=== PATIENT | male | born 1985 | race Caucasian/White ===

== ENCOUNTER 2020-03-14 18:23 | Observation (INO) | payer OTHER ==
[2020-03-14] MEDS ORDERED: LORazepam 2 MG/ML INJ IV STA (18:51)
[2020-03-14 19:11] LABS: Basophils % (A) 1 %; Eosinophils # (A) 0.1 k/uL (0-0.7); Eosinophils % (A) 4 %; HCT 46.6 % (39.0-53.0); HGB 16.1 gm/dL (13.0-17.5); Lymphocytes # (A) 2.1 k/uL (1.0-4.8); Lymphocytes % (A) 62 %; MCH 32.9 pg (25.0-35.0); MCHC 34.6 g/dL (31.0-37.0); MCV 95.2 fL (80.0-100.0); Mean Platelet Volume 7.2; Monocytes # (A) 0.1 k/uL (0-1.0); Monocytes % (A) 3 %; Neutrophils # (A) 0.9 k/uL (1.3-7.7); Neutrophils % (A) 28 %; Platelet Count 157 k/uL (150-450); RDW 13.2 % (11.5-15.5); WBC 3.4 k/uL (3.8-10.6)
[2020-03-14 19:19] LABS: ALT 212 U/L (4-49); AST 140 U/L (17-59); African American GFR (CKD) >90 (>60 ml/min/1.73 sqM); Albumin 5.2 g/dL (3.5-5.0); Alkaline Phosphatase 94 U/L (38-126); Anion Gap 17 mmol/L; Blood Urea Nitrogen 5 mg/dL (9-20); Calcium 9.3 mg/dL (8.4-10.2); Carbon Dioxide 22 mmol/L (22-30); Chloride 106 mmol/L (98-107); Glucose 138 mg/dL (74-99); Non-African American GFR(CKD) >90 (>60 ml/min/1.73 sqM); Potassium 4.2 mmol/L (3.5-5.1); Sodium 145 mmol/L (137-145); Total Bilirubin 0.8 mg/dL (0.2-1.3); Total Protein 8.8 g/dL (6.3-8.2)
[2020-03-14 19:22] LABS: Appearance,Urine Clear (Clear); Bilirubin,Urine Negative (Negative); Blood,Urine Trace (Negative); Color,Urine Yellow; Glucose,Urine (UA) Negative (Negative); Hyaline Casts,Urine 63 /lpf (0-2); Ketones,Urine Trace (Negative); Leukocyte Esterase,Urine Negative (Negative); Mucus,Urine Many /hpf; Nitrite,Urine Negative (Negative); Protein,Urine 2+ (Negative); RBC,Urine 1 /hpf (0-5); Specific Gravity,Urine 1.009 (1.001-1.035); Urobilinogen,Urine <2.0 mg/dL (<2.0); WBC,Urine 2 /hpf (0-5)
[2020-03-14 19:30] LABS: Amphetamine Screen,Urine Not Detected (NotDetected); Barbiturate Screen,Urine Not Detected (NotDetected); Benzodiazepines Screen,Urine Not Detected (NotDetected); Cocaine Screen,Urine Not Detected (NotDetected); Methadone Screen, Urine Not Detected (NotDetected); Opiate Screen,Urine Not Detected (NotDetected); Oxycodone Screen, Urine Not Detected (NotDetected); Phencyclidine Screen,Urine Not Detected (NotDetected); Tricyclic Antidepressant,Urine Not Detected (NotDetected); Urn Cannabinoid Scrn Not Detected (NotDetected)
[2020-03-14 19:31] LABS: Alcohol 371 mg/dL
--- NOTE | 2020-03-14 19:42 | ED ---
Psych HPI - General Chief Complaint: Psychiatric Symptoms Stated Complaint: Mental health Time Seen by Provider: 03/14/20 18:30 Source: patient Mode of arrival: ambulatory - History of Present Illness Initial Comments: Patient is a 34-year-old previously healthy male presents to the emergency room with reported depression and suicidal ideations. Patient arrives with his mother at bedside. Patient reports to feeling depressed for the past several years however his depression has gotten worse over the past month. He states he feels "empty" inside. Denies any suicidal plan and has not attempted to harm himself. Reports to hearing of voices in his head repeating his name over and over. Due to his depression the patient has been drinking daily. States that he drank a pint today. Denies any other drug use. Patient has never been evaluated by social work. No inpatient hospitalizations for mental health. Denies any homicidal ideations. No visual hallucinations. No other alleviating, precipitating or modifying factors - Related Data Home Medications Medication Instructions Recorded Confirmed No Known Home Medications 03/14/20 03/14/20 Allergies Allergy/AdvReac Type Severity Reaction Status Date / Time No Known Allergies Allergy Verified 03/14/20 20:05 Review of Systems ROS Statement: Those systems with pertinent positive or pertinent negative responses have been documented in the HPI. ROS Other: All systems not noted in ROS Statement are negative. Past Medical History Past Medical History: No Reported History History of Any Multi-Drug Resistant Organisms: MRSA Past Surgical History: No Surgical Hx Reported Past Psychological History: No Psychological Hx Reported Smoking Status: Never smoker Past Alcohol Use History: Daily, Heavy Past Drug Use History: None Reported General Exam Limitations: no limitations General appearance: alert, in no apparent distress, anxious Head exam: Present: atraumatic, normocephalic, normal inspection Eye exam: Present: normal appearance, PERRL, EOMI. Absent: scleral icterus, conjunctival injection, periorbital swelling ENT exam: Present: normal exam, mucous membranes moist Neck exam: Present: normal inspection. Absent: tenderness, meningismus, lymphadenopathy Respiratory exam: Present: normal lung sounds bilaterally. Absent: respiratory distress, wheezes, rales, rhonchi, stridor Cardiovascular Exam: Present: normal rhythm, tachycardia, normal heart sounds. Absent: systolic murmur, diastolic murmur, rubs, gallop, clicks GI/Abdominal exam: Present: soft, normal bowel sounds. Absent: distended, tenderness, guarding, rebound, rigid Extremities exam: Present: normal inspection, full ROM, normal capillary refill. Absent: tenderness, pedal edema, joint swelling, calf tenderness Back exam: Present: normal inspection Neurological exam: Present: alert, oriented X3, CN II-XII intact Psychiatric exam: Present: depressed, anxious Skin exam: Present: warm, dry, intact, normal color. Absent: rash Course Vital Signs 03/14/20 03/14/20 03/14/20 18:28 19:19 20:46 Temperature 97.7 F Pulse Rate 142 H 101 H 110 H Respiratory 18 18 Rate Blood Pressure 158/117 148/108 150/102 O2 Sat by Pulse 100 97 Oximetry Medical Decision Making - Medical Decision Making Upon arrival patient is placed into room 13. A thorough history and physical exam is performed. Patient is tachycardic. Peripheral IV was established. Laboratory studies were conducted. Patient's blood alcohol level is 371. AST and ALTs are elevated. As the patient is significantly intoxicated did recommend hospital admission for which the patient did agree to. I discussed the case with Dr. lock. He did request that the patient be placed on Valium 5 mg every 8 hours and Lopressor 12.5 mg every 8 hrs. These medications were ordered. Psychiatry will be consult. Patient remained in stable condition awaiting a bed on the floor - Lab Data Result diagrams: 03/15/20 07:42 03/15/20 07:42 Lab Results 03/14/20 03/14/20 03/14/20 Range/Units 18:55 18:55 19:12 WBC 3.4 L (3.8-10.6) k/uL RBC 4.90 (4.30-5.90) m/uL Hgb 16.1 (13.0-17.5) gm/dL Hct 46.6 (39.0-53.0) % MCV 95.2 (80.0-100.0) fL MCH 32.9 (25.0-35.0) pg MCHC 34.6 (31.0-37.0) g/dL RDW 13.2 (11.5-15.5) % Plt Count 157 (150-450) k/uL Neutrophils % 28 % Lymphocytes % 62 % Monocytes % 3 % Eosinophils % 4 % Basophils % 1 % Neutrophils # 0.9 L (1.3-7.7) k/uL Lymphocytes # 2.1 (1.0-4.8) k/uL Monocytes # 0.1 (0-1.0) k/uL Eosinophils # 0.1 (0-0.7) k/uL Basophils # 0.0 (0-0.2) k/uL Manual Slide Review Performed Sodium 145 (137-145) mmol/L Potassium 4.2 (3.5-5.1) mmol/L Chloride 106 (98-107) mmol/L Carbon Dioxide 22 (22-30) mmol/L Anion Gap 17 mmol/L BUN 5 L (9-20) mg/dL Creatinine 1.02 (0.66-1.25) mg/dL Est GFR (CKD-EPI)AfAm >90 (>60 ml/min/1.73 sqM) Est GFR (CKD-EPI)NonAf >90 (>60 ml/min/1.73 sqM) Glucose 138 H (74-99) mg/dL Calcium 9.3 (8.4-10.2) mg/dL Total Bilirubin 0.8 (0.2-1.3) mg/dL AST 140 H (17-59) U/L ALT 212 H (4-49) U/L Alkaline Phosphatase 94 (38-126) U/L Total Protein 8.8 H (6.3-8.2) g/dL Albumin 5.2 H (3.5-5.0) g/dL Urine Color Yellow Urine Appearance Clear (Clear) Urine pH 6.0 (5.0-8.0) Ur Specific [place] 1.009 (1.001-1.035) Urine Protein 2+ H (Negative) Urine Glucose (UA) Negative (Negative) Urine Ketones Trace H (Negative) Urine Blood Trace H (Negative) Urine Nitrite Negative (Negative) Urine Bilirubin Negative (Negative) Urine Urobilinogen <2.0 (<2.0) mg/dL Ur Leukocyte Esterase Negative (Negative) Urine RBC 1 (0-5) /hpf Urine WBC 2 (0-5) /hpf Hyaline Casts 63 H (0-2) /lpf Urine Mucus Many H (None) /hpf Urine Opiates Screen Not Detected (NotDetected) Ur Oxycodone Screen Not Detected (NotDetected) Urine Methadone Screen Not Detected (NotDetected) Ur Propoxyphene Screen Not Detected (NotDetected) Ur Barbiturates Screen Not Detected (NotDetected) U Tricyclic Antidepress Not Detected (NotDetected) Ur Phencyclidine Scrn Not Detected (NotDetected) Ur Amphetamines Screen Not Detected (NotDetected) U Methamphetamines Scrn Not Detected (NotDetected) U Benzodiazepines Scrn Not Detected (NotDetected) Urine Cocaine Screen Not Detected (NotDetected) U Marijuana (THC) Screen Not Detected (NotDetected) Serum Alcohol 371 H* mg/dL Disposition Clinical Impression: Depression, Suicidal ideation, Alcohol intoxication Disposition: ADMITTED IP TO THIS [facility] Condition: Stable Is patient prescribed a controlled substance at d/c from ED?: No Decision to Admit Reason: Admit from EC Decision Date: 03/14/20 Decision Time: 19:44
[2020-03-14] MEDS ORDERED: NALOXONE 0.4 MG/ML 1 ML VIAL IV PRN (19:44)
[2020-03-14] MEDS ORDERED: LORazepam 2 MG/ML INJ IV PRN ×2 (19:46)
[2020-03-14] MEDS ORDERED: THIAMINE 100 MG/ML 2 ML VIAL IM STA (19:46)
[2020-03-14] MEDS: SODIUM CHLORIDE 0.9% 1,000 ML IV SCH ×2 (20:41→22:12)
[2020-03-14] MEDS: diazePAM 5 MG TAB PO SCH (22:09)
[2020-03-14] MEDS: METOPROLOL TARTRATE 12.5 MG TAB PO SCH (22:09)
[2020-03-15] MEDS: LORazepam 2 MG/ML INJ IV PRN ×3 (05:37→20:30)
[2020-03-15 08:14] LABS: Basophils % (A) 1 %; Eosinophils # (A) 0.1 k/uL (0-0.7); Eosinophils % (A) 3 %; HCT 43.7 % (39.0-53.0); HGB 15.1 gm/dL (13.0-17.5); Lymphocytes # (A) 1.6 k/uL (1.0-4.8); Lymphocytes % (A) 52 %; MCH 33.3 pg (25.0-35.0); MCHC 34.5 g/dL (31.0-37.0); MCV 96.5 fL (80.0-100.0); Mean Platelet Volume 7.3; Monocytes # (A) 0.2 k/uL (0-1.0); Monocytes % (A) 6 %; Neutrophils % (A) 35 %; Platelet Count 148 k/uL (150-450); RBC 4.53 m/uL (4.30-5.90); RDW 13.3 % (11.5-15.5)
[2020-03-15 08:18] LABS: African American GFR (CKD) >90 (>60 ml/min/1.73 sqM); Anion Gap 9 mmol/L; Blood Urea Nitrogen 6 mg/dL (9-20); Calcium 8.5 mg/dL (8.4-10.2); Carbon Dioxide 26 mmol/L (22-30); Chloride 106 mmol/L (98-107); Glucose 96 mg/dL (74-99); Non-African American GFR(CKD) >90 (>60 ml/min/1.73 sqM); Potassium 4.1 mmol/L (3.5-5.1); Sodium 141 mmol/L (137-145)
[2020-03-15] MEDS: METOPROLOL TARTRATE 12.5 MG TAB PO SCH ×3 (08:38→20:29)
[2020-03-15] MEDS: diazePAM 5 MG TAB PO SCH ×3 (08:39→20:29)
[2020-03-15] MEDS: THIAMINE 100 MG TAB PO SCH ×2 (08:39→17:08)
[2020-03-15] MEDS: SODIUM CHLORIDE 0.9% 1,000 ML IV SCH ×2 (08:41→17:09)
[2020-03-15] MEDS: FAMOTIDINE 20 MG TAB PO SCH ×2 (12:41→20:29)
--- NOTE | 2020-03-15 16:52 | CONS ---
CONSULTATION REASON FOR CONSULTATION: Alcohol intoxication and depression. HISTORY OF PRESENT ILLNESS: Patient is a 34-year-old male, father of 2 children. Currently unemployed. The patient presented to the emergency room with depression and suicidal ideation. At the time of his arrival, the patient's serum alcohol was 371. 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 Patient stated that he has been drinking on daily basis at least 1 pint a day. He said "it is my way to calm down my head. I am always dwelling on negative stuff." At the time, the patient was teary eyes and he stated that when he was drinking yesterday he was hearing voices in his head, calling his name over and over and also he saw that there is people are trying to break in to the house and he did contact his mother, who took him to the ER. The patient stated that his main support is his mother. Today, he denied any auditory or visual hallucination. He denied any paranoia, but he stated that he has severe anxiety and agoraphobia and fears to be around people. The patient stated that he used when he was young to hear voices calling his name, but not anymore. PAST PSYCHIATRIC HISTORY: There is no previous suicidal attempt. There is no previous inpatient treatment. However, he was in outpatient counseling 2 years ago with private psychiatrist, but he did not follow up with him, even he did prescribe antidepression, but patient did not take it. ALCOHOL USE DISORDER: For the last 5 years, he has been drinking more often on daily basis 1 pint a day. He denied any history of DT or withdrawal seizures. He never had been in rehab program. He denied any other illicit drug use. FAMILY HISTORY OF PSYCHIATRIC ILLNESS: Both parents and 2 brothers struggling with alcohol. Also, father did have depression and attempted suicide once. BRIEF SOCIAL HISTORY: The patient was for 5 years and he has 2 young children. Currently, he is and going through a divorce. As I mentioned before, he just was laid off from his job. His main support is his mother. MEDICAL HISTORY: There is history of MRSA. ALLERGIES: There is no drug allergy. MENTAL STATUS EXAMINATION: Patient is young male who is wearing hospital gown. Hygiene and grooming appropriate. He is wearing eyeglasses. Patient was trying to minimize his depression. However, when he was talking about ongoing stressor, he did have teary eyes. Today he denied any current suicidal or homicidal ideation and he denied hearing any voices, but he did admit that he has severe agoraphobia and having difficulty trusting people. Even he said that he is struggling with a lot of negative elimination and that is why "maybe that is why I have been drinking more over the last couple of years, just to slow down my brain." The patient was alert, oriented x3. His memory is grossly intact. Insight and judgment are limited. DIAGNOSES: 1. Alcohol use disorder, severe. 2. Major depression, recurrent, moderate. 3. Anxiety disorder, NOS. PLAN: 1. Please continue one-to-one for safety. 2. Continue the patient on the CIWA protocol. I did discuss with him inpatient substance rehab, but he stated that he wants to think about it. However, I will continue to follow up as long as he is on the medical floor as the patient seems that he has a lot of losses recently and depressed, but he trying to minimize the level of his depression. Thank you for this consult. JACKLYN / ADRIEN: [id number] /
--- NOTE | 2020-03-15 19:48 | P.HPIM ---
History of Present Illness H&P Date: 03/15/20 Chief Complaint: Depressed History of presenting complaint: This is a 34-year-old patient of Dr. Chavez. Patient takes she's been depressed for some time. He is undergoing a divorce. He has been laid off for few weeks due to the pandemic. Patient has been drinking lots 10 years a pint of vodka a day. More recently has become more depressed rundown. Pretty much lays about on the couch. Appetite is gone none. Some does get reflux. Does not sleep well. Some diet only sleep for 2 hours. Alcohol left some go to sleep. He felt really suicidal depressed yesterday. Called his mother. Who brought into the ER. Patient admitted for the same. Put on a CIWA scale. Review of systems: GEN.: Tired EYES: None HEENT: None NECK: None RESPIRATORY: None CARDIOVASCULAR: None GASTROINTESTINAL: Reflux sometimes GENITOURINARY: None MUSCULOSKELETAL: None LYMPHATICS: None HEMATOLOGICAL: None PSYCHIATRY: Depressed NEUROLOGICAL: None Past medical history to include: Alcohol use disorder Social history: Going through divorce has 2 kids. 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 Has been drinking a pint of vodka, and average for close to 10 years Family history: Reviewed, noncontributory to presentation Physical examination: VITAL SIGNS: 97.7, 142, 18, 150 [id number], 100% on room air GENERAL: BMI 31.6, laying in bed, awake a bit anxious. A bit flushed EYES: Pupils equal. Conjunctiva normal. HEENT: External appearance of nose and ears normal, oral cavity grossly normal. NECK: JVD not raised; masses not palpable. HEART: First and second heart sounds are normal; no edema. LUNGS: Respiratory rate normal; clear to auscultation. ABDOMEN: Soft, nontender, liver spleen not palpable, no masses palpable. PSYCH: Alert and oriented x3; mood and affect anxiousl. NEUROLOGICAL: Cranial nerves grossly intact; no facial asymmetry, power and sensation grossly intact. LYMPHATICS: No lymph nodes palpable in the axilla and neck. INVESTIGATIONS, reviewed in the clinical context: White count 3.4 hemoglobin 16.1 platelets 148 decreased neutrophils potassium 4.2 creatinine 1.02 AST 140 ALT 212 Serum alcohol 371 urine drug screen negative Assessment: -Major depression possibly first episode with suicidal ideation -Chronic insomnia possibly from depression and anxiety -Alcoholic hepatitis -Alcohol use disorder -Alcohol withdrawal syndrome on presentation -Acute alcohol intoxication on presentation -Obesity BMI 31.6 Plan: Patient started on Valium 5 mg every 8 scheduled. Also Lopressor 12.5 - 3 times a day for cutting back on [address]. Patient has a sitter. On a CIWA scale. Psychiatry was consulted. In watch for another 24 hours and then transferred to patient is psychiatry unit. Past Medical History Past Medical History: No Reported History History of Any Multi-Drug Resistant Organisms: MRSA Past Surgical History: No Surgical Hx Reported Past Anesthesia/Blood Transfusion Reactions: No Reported Reaction Past Psychological History: No Psychological Hx Reported Smoking Status: Never smoker Past Alcohol Use History: Daily, Heavy Past Drug Use History: None Reported Medications and Allergies Home Medications Medication Instructions Recorded Confirmed Type No Known Home Medications 03/14/20 03/14/20 History Allergies Allergy/AdvReac Type Severity Reaction Status Date / Time No Known Allergies Allergy Verified 03/14/20 20:05 Physical Exam Vitals: Vital Signs Temp Pulse Pulse Resp BP BP Pulse Ox 03/15/20 07:32 98.3 F 92 16 128/76 97 03/15/20 01:58 98.1 F 97 19 118/73 96 03/14/20 21:15 98.0 F 18 148/96 98 03/14/20 20:46 110 H 150/102 97 03/14/20 19:19 101 H 18 148/108 03/14/20 18:28 97.7 F 142 H 18 158/117 100 Intake and Output 03/14/20 03/15/20 03/15/20 22:59 06:59 14:59 Intake Total 500 1200 Balance 500 1200 Intake: Intake, IV Titration 300 900 Amount Sodium Chloride 0.9% 1, 300 900 000 ml @ 150 mls/hr IV . [id number] [facility] Rx#:[id number] Oral 200 300 Other: Voiding Method Toilet Toilet Toilet # Voids 2 2 Weight 99.79 kg Results CBC & Chem 7: 03/15/20 07:42 03/15/20 07:42 Labs: Abnormal Lab Results - Last 24 Hours (Table) 03/14/20 03/14/20 03/14/20 Range/Units 18:55 18:55 19:12 WBC 3.4 L (3.8-10.6) k/uL Plt Count (150-450) k/uL Neutrophils # 0.9 L (1.3-7.7) k/uL BUN 5 L (9-20) mg/dL Glucose 138 H (74-99) mg/dL AST 140 H (17-59) U/L ALT 212 H (4-49) U/L Total Protein 8.8 H (6.3-8.2) g/dL Albumin 5.2 H (3.5-5.0) g/dL Urine Protein 2+ H (Negative) Urine Ketones Trace H (Negative) Urine Blood Trace H (Negative) Hyaline Casts 63 H (0-2) /lpf Urine Mucus Many H (None) /hpf Serum Alcohol 371 H* mg/dL 03/15/20 03/15/20 Range/Units 07:42 07:42 WBC 3.0 L (3.8-10.6) k/uL Plt Count 148 L (150-450) k/uL Neutrophils # 1.0 L (1.3-7.7) k/uL BUN 6 L (9-20) mg/dL Glucose (74-99) mg/dL AST (17-59) U/L ALT (4-49) U/L Total Protein (6.3-8.2) g/dL Albumin (3.5-5.0) g/dL Urine Protein (Negative) Urine Ketones (Negative) Urine Blood (Negative) Hyaline Casts (0-2) /lpf Urine Mucus (None) /hpf Serum Alcohol mg/dL Thrombosis Risk Factor Assmnt - Choose All That Apply Any of the Below Risk Factors Present?: No Other Risk Factors: No Other congenital or acquired thrombophilia - If yes, enter type in comment: No Thrombosis Risk Factor Assessment Level: Very Low Risk
[2020-03-16] MEDS: diazePAM 5 MG TAB PO SCH ×2 (04:00→11:48)
[2020-03-16] MEDS: FAMOTIDINE 20 MG TAB PO SCH (08:04)
[2020-03-16] MEDS: METOPROLOL TARTRATE 12.5 MG TAB PO SCH (08:04)
[2020-03-16] MEDS: THIAMINE 100 MG TAB PO SCH (08:04)
[2020-03-16 15:20] VITALS: BP 143/99; PULSE 98; RESP 18; TEMP 98.3
--- NOTE | 2020-03-16 20:59 | P.DS ---
Providers Date of admission: 03/14/20 19:47 Expected date of discharge: 03/16/20 Attending physician: Steve Licona Consults: 03/14/20 19:45 Consult Physician Urgent Consulting Provider: Andra Cantrell Consult Reason/Comments: acute alcohol intoxication, acute depression Do you want consulting provider notified?: Yes [facility] Course: Chief Complaint: Depressed History of presenting complaint: This is a 34-year-old patient of Dr. Chavez. Patient takes she's been depressed for some time. He is undergoing a divorce. He has been laid off for few weeks due to the pandemic. Patient has been drinking lots 10 years a pint of vodka a day. More recently has become more depressed rundown. Pretty much lays about on the couch. Appetite is gone none. Some does get reflux. Does not sleep well. Some diet only sleep for 2 hours. Alcohol left some go to sleep. He felt really suicidal depressed yesterday. Called his mother. Who brought into the ER. Patient admitted for the same. Put on a CIWA scale. Admitted with severe depression with suicidal ideation and alcohol intoxication. Treated for early withdrawal with Valium and Lopressor. Today-feeling better. Hadn't eaten her breakfast. Has a sitter. Depressed. Did walk in the hallway. We'll give another 48 hours of Valium tapering and Lopressor. Patient was seen by Dr. Blood from psychiatry. Accepted to the psychiatry floor. Discussed with the patient. Patient related to go down to the psychiatry floor. Consultation: Dr. blood from psychiatry's Physical examination: VITAL SIGNS: 98.1, 73, 16, 149/94, 99% room air GENERAL: BMI 31.6, laying in bed, awake EYES: Pupils equal. Conjunctiva normal. HEENT: External appearance of nose and ears normal, oral cavity grossly normal. NECK: JVD not raised; masses not palpable. HEART: First and second heart sounds are normal; no edema. LUNGS: Respiratory rate normal; clear to auscultation. ABDOMEN: Soft, nontender, liver spleen not palpable, no masses palpable. PSYCH: Alert and oriented x3; mood and affect anxious. INVESTIGATIONS, reviewed in the clinical context: White count 3.4 hemoglobin 16.1 platelets 148 decreased neutrophils potassium 4.2 creatinine 1.02 AST 140 ALT 212 Serum alcohol 371 urine drug screen negative Assessment: -Major depression recurrent, moderate -Chronic insomnia possibly from depression and anxiety -Alcoholic hepatitis -Alcohol use disorder -Alcohol withdrawal syndrome on presentation -Acute alcohol intoxication on presentation -Obesity BMI 31.6 Disposition: 3 W./psychiatry unit at [facility] Patient Condition at Discharge: Stable Plan - Discharge Summary Discharge Rx Participant: No New Discharge Prescriptions: New Metoprolol Tartrate [Lopressor] 12.5 mg PO BID #6 tab Famotidine [Pepcid] 20 mg PO BID tab diazePAM [Valium] 2.5 mg PO BID #4 tab Thiamine [Vitamin B-1] 100 mg PO BID-W/MEALS tab Discharge Medication List Famotidine [Pepcid] 20 mg PO BID tab 03/16/20 [Rx] Metoprolol Tartrate [Lopressor] 12.5 mg PO BID #6 tab 03/16/20 [Rx] Thiamine [Vitamin B-1] 100 mg PO BID-W/MEALS tab 03/16/20 [Rx] diazePAM [Valium] 2.5 mg PO BID #4 tab 03/16/20 [Rx] Follow up Appointment(s)/Referral(s): Twin Chavez MD [Primary Care Provider] - 2 Weeks Patient Instructions/Handouts: Abuse of Alcohol (DC), Suicide Prevention (DC) Discharge Disposition: TRANSFER TO PSYCH HOSP/UNIT
== END 2020-03-16 14:40 ==
LOC: EC 18:23 → 4SSUR 19:47
PROVIDERS: ADMIT Hospitalist; ATTEND Hospitalist
DX: F33.9 Major depressive disorder, recurrent, unspecified (principal); F10.239 Alcohol dependence with withdrawal, unspecified; F10.229 Alcohol dependence with intoxication, unspecified; F41.9 Anxiety disorder, unspecified; F51.04 Psychophysiologic insomnia; K70.10 Alcoholic hepatitis without ascites; E66.9 Obesity, unspecified; R44.0 Auditory hallucinations; R44.1 Visual hallucinations; R00.0 Tachycardia, unspecified; K21.9 Gastro-esophageal reflux disease without esophagitis; G47.9 Sleep disorder, unspecified; F40.00 Agoraphobia, unspecified; Y90.8 Blood alcohol level of 240 mg/100 ml or more; Z68.31 Body mass index [BMI] 31.0-31.9, adult; Z86.14 Personal history of Methicillin resistant Staphylococcus aureus infection; Z97.3 Presence of spectacles and contact lenses; Z81.1 Family history of alcohol abuse and dependence; Z81.8 Family history of other mental and behavioral disorders
CPT/HCPCS: 96376 ×2; 96361; 82075; 96372; 96374; 99284; 36415; 80053; 80048; 85025 ×2; 81001; 80306; 80320; G0378 ×3; J2060 ×2; J3411

== ENCOUNTER 2020-03-16 15:34 | Inpatient (IN) | payer OTHER ==
[2020-03-16] MEDS ORDERED: MAG HYDROX/AL HYDROX/SIMETH 30 ML CUP PO PRN (15:59)
[2020-03-16] MEDS ORDERED: MAGNESIUM HYDROXIDE 2,400 MG/10 ML CUP PO PRN (15:59)
[2020-03-16] MEDS ORDERED: LORazepam 1 MG TAB PO PRN (15:59)
[2020-03-16] MEDS ORDERED: ZIPRASIDONE 20 MG VIAL IM PRN (15:59)
[2020-03-16] MEDS ORDERED: LORazepam 2 MG/ML INJ IM PRN (16:03)
[2020-03-16] MEDS: THIAMINE 100 MG TAB PO SCH (17:34)
[2020-03-16] MEDS: METOPROLOL TARTRATE 12.5 MG TAB PO SCH (21:24)
[2020-03-17 07:20] LABS: Basophils # (A) 0.1 k/uL (0-0.2); Basophils % (A) 1 %; Eosinophils # (A) 0.1 k/uL (0-0.7); Eosinophils % (A) 4 %; HCT 46.7 % (39.0-53.0); HGB 15.8 gm/dL (13.0-17.5); Lymphocytes # (A) 1.7 k/uL (1.0-4.8); Lymphocytes % (A) 50 %; MCH 32.6 pg (25.0-35.0); MCHC 33.8 g/dL (31.0-37.0); MCV 96.5 fL (80.0-100.0); Mean Platelet Volume 7.8; Monocytes # (A) 0.2 k/uL (0-1.0); Monocytes % (A) 5 %; Neutrophils # (A) 1.3 k/uL (1.3-7.7); Neutrophils % (A) 38 %; Platelet Count 157 k/uL (150-450); RBC 4.84 m/uL (4.30-5.90); RDW 13.1 % (11.5-15.5); WBC 3.4 k/uL (3.8-10.6)
[2020-03-17 07:32] LABS: ALT 135 U/L (4-49); AST 75 U/L (17-59); African American GFR (CKD) >90 (>60 ml/min/1.73 sqM); Albumin 4.5 g/dL (3.5-5.0); Alkaline Phosphatase 55 U/L (38-126); Anion Gap 8 mmol/L; Blood Urea Nitrogen 11 mg/dL (9-20); Calcium 9.6 mg/dL (8.4-10.2); Carbon Dioxide 29 mmol/L (22-30); Chloride 103 mmol/L (98-107); Cholesterol 295 mg/dL (<200); Glucose 113 mg/dL (74-99); HDL Cholesterol 80 mg/dL (40-60); LDL Cholesterol,Calculated 178 mg/dL (0-99); Non-African American GFR(CKD) >90 (>60 ml/min/1.73 sqM); Potassium 4.4 mmol/L (3.5-5.1); Sodium 140 mmol/L (137-145); Total Bilirubin 1.1 mg/dL (0.2-1.3); Total Protein 7.6 g/dL (6.3-8.2); Triglycerides 186 mg/dL (<150)
[2020-03-17] MEDS: METOPROLOL TARTRATE 12.5 MG TAB PO SCH ×2 (08:43→19:56)
[2020-03-17] MEDS: FOLIC ACID 1 MG TAB PO SCH (08:43)
[2020-03-17] MEDS: ACETAMINOPHEN TAB 325 MG TAB PO PRN ×2 (08:43→18:18)
[2020-03-17] MEDS: THIAMINE 100 MG TAB PO SCH ×2 (08:43→18:16)
[2020-03-17] MEDS: NICOTINE 14MG/24HR PATCH TRANSDERM SCH (08:43)
[2020-03-17] MEDS ORDERED: HALOPERIDOL LACTATE 5 MG/ML 1 ML VIAL IM PRN (11:26)
[2020-03-17 11:38] LABS: Hemoglobin A1C 5.2 % (4.0-6.0)
--- NOTE | 2020-03-17 11:56 | P.HP ---
Psychiatric H&P - . H&P Date: 03/17/20 History & Physical: Allergies Allergy/AdvReac Type Severity Reaction Status Date / Time No Known Allergies Allergy Verified 03/14/20 20:05 Vital Signs Temp 97.9 F 03/17/20 06:54 Pulse 106 H 03/17/20 08:41 Resp 16 03/17/20 06:54 BP 129/93 03/17/20 08:41 Pulse Ox 99 03/17/20 06:54 Intake & Output 03/16/20 03/17/20 03/17/20 18:59 06:59 18:59 Weight 93.071 kg 93.2 kg Laboratory Last Values WBC 3.4 k/uL (3.8-10.6) L 03/17/20 06:53 RBC 4.84 m/uL (4.30-5.90) 03/17/20 06:53 Hgb 15.8 gm/dL (13.0-17.5) 03/17/20 06:53 Hct 46.7 % (39.0-53.0) 03/17/20 06:53 MCV 96.5 fL (80.0-100.0) 03/17/20 06:53 MCH 32.6 pg (25.0-35.0) 03/17/20 06:53 MCHC 33.8 g/dL (31.0-37.0) 03/17/20 06:53 RDW 13.1 % (11.5-15.5) 03/17/20 06:53 Plt Count 157 k/uL (150-450) 03/17/20 06:53 Neutrophils % 38 % 03/17/20 06:53 Lymphocytes % 50 % 03/17/20 06:53 Monocytes % 5 % 03/17/20 06:53 Eosinophils % 4 % 03/17/20 06:53 Basophils % 1 % 03/17/20 06:53 Neutrophils # 1.3 k/uL (1.3-7.7) 03/17/20 06:53 Lymphocytes # 1.7 k/uL (1.0-4.8) 03/17/20 06:53 Monocytes # 0.2 k/uL (0-1.0) 03/17/20 06:53 Eosinophils # 0.1 k/uL (0-0.7) 03/17/20 06:53 Basophils # 0.1 k/uL (0-0.2) 03/17/20 06:53 Sodium 140 mmol/L (137-145) 03/17/20 06:53 Potassium 4.4 mmol/L (3.5-5.1) 03/17/20 06:53 Chloride 103 mmol/L (98-107) 03/17/20 06:53 Carbon Dioxide 29 mmol/L (22-30) 03/17/20 06:53 Anion Gap 8 mmol/L 03/17/20 06:53 BUN 11 mg/dL (9-20) 03/17/20 06:53 Creatinine 0.96 mg/dL (0.66-1.25) 03/17/20 06:53 Est GFR (CKD-EPI)AfAm >90 (>60 ml/min/1.73 sqM) 03/17/20 06:53 Est GFR (CKD-EPI)NonAf >90 (>60 ml/min/1.73 sqM) 03/17/20 06:53 Glucose 113 mg/dL (74-99) H 03/17/20 06:[address] Glu mg/dL 103 03/17/20 06:53 Hemoglobin A1c 5.2 % (4.0-6.0) 03/17/20 06:53 Calcium 9.6 mg/dL (8.4-10.2) 03/17/20 06:53 Total Bilirubin 1.1 mg/dL (0.2-1.3) 03/17/20 06:53 AST 75 U/L (17-59) H 03/17/20 06:53 ALT 135 U/L (4-49) H 03/17/20 06:53 Alkaline Phosphatase 55 U/L (38-126) 03/17/20 06:53 Total Protein 7.6 g/dL (6.3-8.2) 03/17/20 06:53 Albumin 4.5 g/dL (3.5-5.0) 03/17/20 06:53 Triglycerides 186 mg/dL (<150) H 03/17/20 06:53 Cholesterol 295 mg/dL (<200) H 03/17/20 06:53 LDL Cholesterol, Calc 178 mg/dL (0-99) H 03/17/20 06:53 HDL Cholesterol 80 mg/dL (40-60) H 03/17/20 06:53 TSH 3.860 mIU/L (0.465-4.680) 03/17/20 06:53 03/17/20 11:47 IDENTIFYING DATA: Patient is a 34-year-old male who has 2 children and lives alone and is unemployed currently however was working in [employer] 2 months ago. HPI: Patient presented to the hospital initially 50 emergency room depression and suicidal thoughts. Patient's blood alcohol level was 371 on admission. Patient was seen for psychiatric consultation on the medical floors and spoke about being severely depressed and claiming that it was hard for him to wake up in the morning and be happy. 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 After being evaluated by psychiatry, patient was deemed appropriate for transfer to mental unit after he was medically cleared. Patient was seen today wandering the floors and was agreeable to be evaluated by underwriter solicitation director. Patient spoke about significant paranoid thoughts at home and a "buildup of everything" prior to coming in the hospital. He states that he had bad thoughts about coming into the hospital and usually tries to avoid it as "people come here to ". He endorsed significant anxiety and panic attacks for 4 years and paranoia for approximately 2 years now. He states that his mother had picked him up as he had a "meltdown" at home after he saw most dropping this. He states that he has been fairly scared at home about people coming into the house. He claims that he has been drinking alcohol approximately 1 pint a day of vodka and denies any withdrawal symptoms at this time. He claims that he does it to help with his anxiety. He claims that he is to be taking Xanax for several years however stopped. He claims that he has heard voices on and off however at this time denies any voices. He claims that earlier today he was in his room crying as he felt that he knew someone here on the unit just by the "way they look". Patient denies any suicidal or homicidal ideations intent or plan. At this time patient denies any auditory or visual hallucinations. Patient denies any other recreational drug use at this time and denies using any cigarettes. PAST PSYCHIATRIC HISTORY: Patient states that he has a history of panic attacks. He states that he used to be on Xanax several years ago. Patient denies any previous psychiatric hospitalizations. He claims that he was doing outpatient counseling 2 years ago with a private psychiatrist however did not follow up with him and states that he was on an antidepressant medication but does not know which one. Patient denies any history of suicide attempts in the past. PMH:denies ALLERGIES: as per EMR CHEMICAL DEPENDENCY HISTORY: as per HPI FAMILY PSYCHIATRIC/SUBSTANCE USE HISTORY: denies SOCIAL HISTORY: Patient was for 5 years and has 2 young children. He is currently going through a divorce and is . He currently lives alone in an apartment. He is currently unemployed and used to work for several years in [employer]. He was laid off approximately 2 months ago. MENTAL STATUS EXAM: General Appearance: Patient appears to be stated age is alert, directable, and appears to be anxious. Patient appears to have fair hygiene and grooming. Behavior: Patient is seated without any agitated behavior. As to be anxious Speech: Patient's speech is fluent and nonpressured. Hesitant at times Mood/Affect: Patient reports their mood is depressed, affect is congruent labile. Suicidality/Homicidality: Patient denies having any homicidal ideation intent or plan. Denies any suicidal ideations intent or plan Perceptions: Patient denies any visual hallucinations and denies any auditory hallucinations Though content/process: There is no evidence of any delusional thought content and thought process is linear and goal-directed. Catastrophizing and focused on his symptoms. paranoia. Memory and concentration: AOX3, grossly intact for the purposes of this session. Can spell "WORLD" backwards Judgment and insight: poor STRENGTHS/WEAKNESSES: strength is that patient is resilient. Weakness is that patient has poor judgment/insight and is impulsive INTELLECT: average IMPRESSIONS: Psychosis unspecified History of panic disorder Alcohol use disorder, severe PLAN: -Patient is admitted under voluntary status to MHU for stabilization of psychiatric symptoms and safety. Patient signed adult voluntary form and is placed in patient's chart. -Medications : Will start patient on Zoloft 50 mg daily for mood/anxiety with plan to titrate up as needed. Will start patient on Geodon 20 mg twice a day for psychosis/paranoia. -Ativan and Haldol PRN for agitation/aggression -Started thiamine, MVM for etoh use -CIWA protocol with Ativan PRN for ETOH withdrawal -Patient was counselled on substance abuse and desired to cut back on use -Patient was informed of the risks, benefits and side effects of the medication and patient verbally consented to taking the medications. Patient signed med consent form and was placed in chart. -Internal Medicine consult to perform medical evaluation and physical. Ordered an EKG to check QTc interval. -NRT -not needed as patient does not smoke -SW on board for discharge planning. Encourage patient to participate in groups to work on coping skills.
[2020-03-17] MEDS: SERTRALINE 50 MG TAB PO SCH (12:10)
--- NOTE | 2020-03-17 19:08 | P.CONS ---
History of Present Illness - Reason for Consult Consult date: 03/17/20 Medical management Requesting physician: Andra Cantrell - Chief Complaint Depressed - History of Present Illness Chief Complaint: Depressed History of presenting complaint: This is a 34-year-old patient of Dr. Chavez. Patient thinks he has been depressed for some time. He is undergoing a divorce. He has been laid off for few weeks due to the pandemic. Patient has been drinking lots 10 years a pint of vodka a day. More recently has become more depressed rundown. Pretty much lays about on the couch. Appetite is gone none. get reflux. Does not sleep well. Some times only sleep for 2 hours. . Admitted to my service from er 3 to March 16. Admitted with severe depression with suicidal ideation and alcohol intoxication. Treated for early withdrawal with Valium and Lopressor. Now feeling a bit better. Appetite is slowly improving. Depressed. Has been in therapy. Starting to eat better. Review of systems: GEN.: Tired EYES: None HEENT: None NECK: None RESPIRATORY: None CARDIOVASCULAR: None GASTROINTESTINAL: Reflux sometimes GENITOURINARY: None MUSCULOSKELETAL: None LYMPHATICS: None HEMATOLOGICAL: None PSYCHIATRY: Depressed NEUROLOGICAL: None Past medical history to include: Alcohol use disorder Social history: Going through divorce has 2 kids. Used to work as a project coordinator witnessed on infertility. Now laid off. Has been drinking a pint of vodka, and average for close to 10 years Family history: Reviewed, noncontributory to presentation Physical examination: VITAL SIGNS: 97.9, 82, 16, 125/86, 99% room air GENERAL: BMI 30.3, comfortable. EYES: Pupils equal. Conjunctiva normal. HEENT: External appearance of nose and ears normal, oral cavity grossly normal. NECK: JVD not raised; masses not palpable. HEART: First and second heart sounds are normal; no edema. LUNGS: Respiratory rate normal; clear to auscultation. ABDOMEN: Soft, nontender, liver spleen not palpable, no masses palpable. PSYCH: Alert and oriented x3; mood and affect -Lowl. NEUROLOGICAL: Cranial nerves grossly intact; no facial asymmetry, power and sensation grossly intact. LYMPHATICS: No lymph nodes palpable in the axilla and neck INVESTIGATIONS, reviewed in the clinical context: White count 3.4 hemoglobin 15.8 platelets 157 potassium 4.4 creatinine 0.96 AST 75 ALT 135 LDL 178 TSH 3.8 Assessment: -Major depression recurrent, moderate -Chronic insomnia possibly from depression and anxiety -Alcoholic hepatitis -Alcohol use disorder -Alcohol withdrawal syndrome on presentation -Obesity BMI 31.6 -Hyperlipidemia -Mild hypertriglyceridemia Plan: Patient is beta zackery will be stopped after tonight's dose. Other medications to continue. Patient's LFTs are coming down. He may be started on Lipitor by his PCP upon discharge. Once he stops drinking and LFTs remained to come down. Continue to watch for alcohol withdrawal syndrome. Thank you Dr. Armstrong Past Medical History Past Medical History: No Reported History History of Any Multi-Drug Resistant Organisms: None Reported Past Surgical History: No Surgical Hx Reported Past Anesthesia/Blood Transfusion Reactions: No Reported Reaction Past Psychological History: No Psychological Hx Reported Smoking Status: Never smoker Past Alcohol Use History: Daily, Heavy Past Drug Use History: None Reported Medications and Allergies Home Medications Medication Instructions Recorded Confirmed Type Famotidine [Pepcid] 20 mg PO BID tab 03/16/20 03/16/20 Rx Metoprolol Tartrate [Lopressor] 12.5 mg PO BID #6 tab 03/16/20 03/16/20 Rx Thiamine [Vitamin B-1] 100 mg PO BID-W/MEALS tab 03/16/20 03/16/20 Rx diazePAM [Valium] 2.5 mg PO BID #4 tab 03/16/20 03/16/20 Rx Allergies Allergy/AdvReac Type Severity Reaction Status Date / Time No Known Allergies Allergy Verified 03/14/20 20:05 Physical Exam Vitals: Vital Signs Temp Pulse Resp BP Pulse Ox 03/17/20 08:41 106 H 129/93 03/17/20 06:54 97.9 F 82 16 125/86 99 03/16/20 21:25 132 H 18 132/86 03/16/20 17:01 98.9 F 95 18 135/106 98 Intake and Output 03/16/20 03/17/20 03/17/20 22:59 06:59 14:59 Other: Weight 93.071 kg 93.2 kg Results CBC & Chem 7: 03/17/20 06:53 03/17/20 06:53 Labs: Abnormal Lab Results - Last 24 Hours (Table) 03/17/20 03/17/20 Range/Units 06:53 06:53 WBC 3.4 L (3.8-10.6) k/uL Glucose 113 H (74-99) mg/dL AST 75 H (17-59) U/L ALT 135 H (4-49) U/L Triglycerides 186 H (<150) mg/dL Cholesterol 295 H (<200) mg/dL LDL Cholesterol, Calc 178 H (0-99) mg/dL HDL Cholesterol 80 H (40-60) mg/dL
[2020-03-17] MEDS: ZIPRASIDONE 20 MG CAP PO SCH (19:57)
[2020-03-17 22:26] LABS: Appearance,Urine Clear (Clear); Bilirubin,Urine Negative (Negative); Blood,Urine Negative (Negative); Color,Urine Light Yellow; Glucose,Urine (UA) Negative (Negative); Ketones,Urine Negative (Negative); Leukocyte Esterase,Urine Negative (Negative); Nitrite,Urine Negative (Negative); Protein,Urine Negative (Negative); Specific Gravity,Urine 1.005 (1.001-1.035); Urobilinogen,Urine <2.0 mg/dL (<2.0)
[2020-03-18] MEDS: NICOTINE 14MG/24HR PATCH TRANSDERM SCH (08:13)
[2020-03-18] MEDS: FOLIC ACID 1 MG TAB PO SCH (08:13)
[2020-03-18] MEDS: THIAMINE 100 MG TAB PO SCH ×2 (08:13→17:34)
[2020-03-18] MEDS: METOPROLOL TARTRATE 12.5 MG TAB PO SCH ×2 (08:14→20:16)
[2020-03-18] MEDS: SERTRALINE 50 MG TAB PO SCH (08:14)
[2020-03-18] MEDS: ZIPRASIDONE 20 MG CAP PO SCH ×2 (08:14→20:16)
[2020-03-18 11:52] LABS: Urine Alcohol Negative (Negative); Urine Barbiturate Negative (Negative); Urine Cocaine Negative (Negative); Urine Methadone Negative (Negative); Urine Opiates Negative (Negative); Urine Phencyclidine Negative (Negative)
--- NOTE | 2020-03-18 14:06 | P.PN ---
Progress Note - Text Progress Note Date: 03/18/20 I reviewed medical records : Patient was seen in the office ,stated that he is feeling better ,was able to wake up this morning"Motivated and seeing light at end of tunnel",denies any sleeping or appetite problem ,stated that his depression is 5/10 but anxiety is still high 8/10 ,he denies any current hallucination or alcohol withdrawal MENTAL STATUS EXAM: General Appearance: Patient appears to be stated age is alert, directable, and appears to be anxious. Patient appears to have fair hygiene and grooming. Behavior: Patient is seated without any agitated behavior. As to be anxious Speech: Patient's speech is fluent and nonpressured. Hesitant at times Mood/Affect: Patient reports their mood is depressed, affect is congruent labile. Suicidality/Homicidality: Patient denies having any homicidal ideation intent or plan. Denies any suicidal ideations intent or plan Perceptions: Patient denies any visual hallucinations and denies any auditory hallucinations Though content/process: There is no evidence of any delusional thought content and thought process is linear and goal-directed. Catastrophizing and focused on his symptoms. paranoia. Memory and concentration: AOX3, grossly intact for the purposes of this session. Can spell "WORLD" backwards Judgment and insight: improvong DX: Alcohol use disorder Depression unspecified Anxiety disorder unspecified Assessment/Plan: Continue with current diagnosis. Patient continues to meet criteria for inpatient psychiatric admission for symptom stabilization and safety.Patient will be maintained on current psychotropic medication regimen with the exception of an increase iZoloft Monitor for medication compliance and for any psychotropic medication side effects. Will continue to monitor ongoing response to treatment. Encouraged participation in brendon
[2020-03-19] MEDS: FOLIC ACID 1 MG TAB PO SCH (08:03)
[2020-03-19] MEDS: NICOTINE 14MG/24HR PATCH TRANSDERM SCH (08:03)
[2020-03-19] MEDS: ZIPRASIDONE 20 MG CAP PO SCH ×2 (08:04→21:21)
[2020-03-19] MEDS: SERTRALINE 100 MG TAB PO SCH (08:04)
[2020-03-19] MEDS: THIAMINE 100 MG TAB PO SCH ×2 (08:04→17:00)
[2020-03-19] MEDS: METOPROLOL TARTRATE 12.5 MG TAB PO SCH ×2 (08:05→21:21)
[2020-03-19] MEDS ORDERED: traZODone HCL 50 MG TAB PO PRN (12:42)
--- NOTE | 2020-03-19 12:42 | P.PN ---
Progress Note - Text Progress Note Date: 03/19/20 I reviewed medical records ,did interview patient and discussed his case in team Patient was seen in the office ,stated that he did not sleep last night and that is why he has been staying in bed this morning and could not motivate himself,he stated that he is trying to reconcile with his and has lot of remorse regarding the way he was treated her when he was drinking "I was mean and verbally abusive but I never got physical",he reports that his experience with having hallucination related to his drinking ,he denies any current hallucination or alcohol withdrawal MENTAL STATUS EXAM: General Appearance: Patient appears to be stated age is alert, directable, and appears to be anxious. Patient appears to have fair hygiene and grooming. Behavior: Patient is seated without any agitated behavior. As to be anxious Speech: Patient's speech is fluent and nonpressured. Hesitant at times Mood/Affect: Patient reports their mood is depressed, affect is congruent labile. Suicidality/Homicidality: Patient denies having any homicidal ideation intent or plan. Denies any suicidal ideations intent or plan Perceptions: Patient denies any visual hallucinations and denies any auditory hallucinations Though content/process: There is no evidence of any delusional thought content and thought process is linear and goal-directed. Catastrophizing and focused on his symptoms and his marriage Memory and concentration: AOX3, grossly intact for the purposes of this session. Judgment and insight: improving DX: Depression unspecified Anxiety disorder unspecified Alcohol hallucination ,resolved Alcohol use disorder Assessment/Plan: Continue with current diagnosis. Patient continues to meet criteria for inpatient psychiatric admission for symptom stabilization and safety.Patient will be maintained on current psychotropic medication regimen :Zoloft 100 mg ,will add Naltrexone for alcohol craving ,Trazodone for insomnia Monitor for medication compliance and for any psychotropic medication side effects. Will continue to monitor ongoing response to treatment. Encouraged participation in milieu
[2020-03-20] MEDS: SERTRALINE 100 MG TAB PO SCH (08:11)
[2020-03-20] MEDS: ZIPRASIDONE 20 MG CAP PO SCH (08:11)
[2020-03-20] MEDS: FOLIC ACID 1 MG TAB PO SCH (08:11)
[2020-03-20] MEDS: NICOTINE 14MG/24HR PATCH TRANSDERM SCH (08:11)
[2020-03-20] MEDS: THIAMINE 100 MG TAB PO SCH (08:11)
[2020-03-20] MEDS: METOPROLOL TARTRATE 12.5 MG TAB PO SCH (08:12)
[2020-03-20 08:21] VITALS: BP 133/99; PULSE 112; RESP 18
[2020-03-20] MEDS ORDERED: NALTREXONE HCL 50 MG TAB PO SCH (09:00)
--- NOTE | 2020-03-20 12:05 | DS ---
DISCHARGE SUMMARY DATE OF ADMISSION: 03/17/2020 DATE OF DISCHARGE: 03/20/2020 MEDICAL ASSISTANT DERMATOLOGY: Dr. Licona for history and physical and medical management. DISCHARGE DIAGNOSES: 1. Depressive disorder, unspecified. 2. Anxiety disorder, unspecified. 3. History of panic disorder. 4. alcohol use disorder severe. 5. Alcohol-induced hallucination, resolved. HISTORY OF PRESENT ILLNESS: Patient was initially on the medical unit and I saw him as he was admitted with blood alcohol level was 371 on the admission. Patient was severely depressed and he stated that he was laid off and his is planning to be from him and taking the two kids. Patient stated that he has been struggling with drinking since age 26 and also he endorsed significant anxiety and panic attack for 4 years. He describes social phobia and paranoia for at least a couple of years. Even he stated that when he was drinking and he did try to stop on his own prior to his admission, he called his mom to pick him up as he was so scared at home seeing people coming into the house and hearing voices. Patient has been drinking at least 1 pint a day of vodka and he was on medical unit for alcohol detox. Patient stated also that he was on Xanax prescribed by his primary care physician for anxiety, but it did not help him and as I mentioned at the time of the admission, he denied any hallucination and denied any delusional thinking. For complete history and physical, please refer to H and P dictated on 03/17/2020. HOSPITAL COURSE: The patient was seen by the medical doctor who did recommend to continue the patient on Lopressor for blood pressure and also to continue him on folic acid and thiamine. Patient was started on Zoloft and will gradually titrate Zoloft to 100 mg a day. However, he was complaining of trouble sleeping at night. He did agree to start ReVia 50 mg for alcohol craving; however, I did discuss with him more than once chemical dependency rehab and he declined. During his stay on the unit, he was very active and participating in every group. In addition, he was able to contact his , who stated that she is reconciling with him, even school social worker did contact his who stated that patient sound much better and she did agree that he will come back to live with her and the children. Throughout the course of hospitalization, patient did not show any aggression behavior and his mood and anxiety has been improving, even the last day he stated that his sleep has been much better since we added trazodone for sleep. On the day of discharge, he denied any suicidal or homicidal ideation, intent, or plan. He denied any auditory or visual hallucination. Patient endorses wanting to live for his children. The patient denied any access to guns or weapon. He denied any paranoia and he did not endorse any delusional thinking. As the patient has significant history of alcohol use, he did agree to go to outpatient substance abuse and to follow up with his primary care physician regarding his hypertension. IMPRESSION: 1. Depressive disorder, not otherwise specified. 2. Anxiety disorder, unspecified. 3. History of panic attack and agoraphobia. 4. Alcohol use disorder. DISCHARGE PLAN: Patient will be discharged today as he is not currently an imminent threat to himself or others. Patient was given one month supply for Zoloft 100 mg daily, trazodone 50 mg at bedtime for insomnia, ReVia or naltrexone 50 mg for alcohol craving. I did discuss with him abstinence completely from any illicit drug use and alcohol and to follow up with his primary care physician regarding his hypertension. Patient verbalized understanding and did agree. order worker to help the patient to be transferred to outpatient for dual diagnosis and to arrange followup appointment. I did have a lengthy discussion with him about alcohol use and how it is affecting his mental and physical health and patient verbally agree and understood and he is still declining any inpatient chemical rehab. The patient was instructed to return to the hospital if there is any recurrence of any symptom. MMODL / IJN: [id number] /
[2020-03-20 13:34] VITALS: TEMP 98.7
== END 2020-03-20 13:30 | disposition home or self-care (01) | DRG 885 ==
LOC: 3MHU 16:04
PROVIDERS: ADMIT Psychiatry & Neurology Psychiatry; ATTEND Psychiatry & Neurology Psychiatry
DX: F33.1 Major depressive disorder, recurrent, moderate (principal); R45.851 Suicidal ideations; F10.230 Alcohol dependence with withdrawal, uncomplicated; F22 Delusional disorders; K70.10 Alcoholic hepatitis without ascites; F40.01 Agoraphobia with panic disorder; F40.10 Social phobia, unspecified; F51.04 Psychophysiologic insomnia; E66.9 Obesity, unspecified; E78.5 Hyperlipidemia, unspecified; E78.1 Pure hyperglyceridemia; I10 Essential (primary) hypertension; Z79.899 Other long term (current) drug therapy; Z56.0 Unemployment, unspecified; Z68.31 Body mass index [BMI] 31.0-31.9, adult
CPT/HCPCS: 80053; 80061; 80306; 81003; 83036; 84443; 85025; 93005

== ENCOUNTER 2020-08-08 14:51 | Inpatient (IN) | payer OTHER ==
--- NOTE | 2020-08-08 15:09 | ED ---
Abdominal Pain HPI - General Chief Complaint: Abdominal Pain Stated Complaint: Left side pain, vomiting Time Seen by Provider: 08/08/20 15:09 Source: patient Mode of arrival: ambulatory Limitations: no limitations - History of Present Illness Initial Comments: 35-year-old male presenting to the emergency department with a chief complaint of flank pain. Patient reports the pain started about 3-4 days ago and comes and goes. Patient reports she has been having diarrhea during this period as well. Does report nausea and multiple episodes of nonbilious and nonbloody vomiting. States she is nauseous soon after eating. He does report dark urine but states he has not been drinking plenty of fluids. Does have history of alcohol abuse but has not drank in about 48 hours. Denies any chest pain or shortness of breath. Denies any testicular swelling, erythema or any penile discharge. - Related Data Home Medications Medication Instructions Recorded Confirmed Ibuprofen [Motrin Ib] 400 mg PO Q8H PRN 08/08/20 08/08/20 Allergies Allergy/AdvReac Type Severity Reaction Status Date / Time No Known Allergies Allergy Verified 08/08/20 17:49 Review of Systems ROS Statement: Those systems with pertinent positive or pertinent negative responses have been documented in the HPI. ROS Other: All systems not noted in ROS Statement are negative. Past Medical History Past Medical History: No Reported History History of Any Multi-Drug Resistant Organisms: None Reported Past Surgical History: No Surgical Hx Reported Past Anesthesia/Blood Transfusion Reactions: No Reported Reaction Past Psychological History: No Psychological Hx Reported Smoking Status: Never smoker Past Alcohol Use History: Daily Past Drug Use History: None Reported General Exam Limitations: no limitations General appearance: alert, in no apparent distress, anxious Head exam: Present: atraumatic, normocephalic, normal inspection Eye exam: Present: normal appearance, PERRL, EOMI Pupils: Present: normal accommodation ENT exam: Present: normal exam, normal oropharynx, mucous membranes moist Neck exam: Present: normal inspection, full ROM. Absent: tenderness Respiratory exam: Present: normal lung sounds bilaterally. Absent: respiratory distress, wheezes, rales, rhonchi, stridor Cardiovascular Exam: Present: normal rhythm, tachycardia, normal heart sounds GI/Abdominal exam: Present: soft, tenderness (Left lower quadrant tenderness). Absent: distended, guarding, rebound, rigid Extremities exam: Present: normal inspection, full ROM, normal capillary refill. Absent: tenderness, pedal edema, joint swelling Back exam: Present: normal inspection, full ROM, CVA tenderness (L). Absent: tenderness, CVA tenderness (R) Neurological exam: Present: alert, oriented X3, normal gait Psychiatric exam: Present: normal affect, anxious Skin exam: Present: warm, dry, intact, normal color Course Vital Signs 08/08/20 08/08/20 08/08/20 15:03 15:07 17:32 Temperature 98.8 F Pulse Rate 138 H 113 H Respiratory 16 16 Rate Blood Pressure 157/95 153/98 O2 Sat by Pulse 95 98 Oximetry Medical Decision Making - Medical Decision Making 35-year-old male with history of alcohol abuse presenting to the emergency depa rtment with chief complaint abdominal pain. Physical examination, patient has left flank and left lower quadrant tenderness. CBC reveals mild leukopenia. CMP reveals mild hyponatremia, carbon dioxide of 11 and anion gap of 29. Lactate of 3.4. Transaminitis and hyperbilirubinemia. Elevated lipase at 480. UA shows plus for ketones with small amounts of blood. Serum alcohol negative. Patient was given 2 L of IV bolus fluids. Repeat lactic 1.9. Anion gap decreased to 22. Venous blood gas reveals respiratory alkalosis with metabolic compensation. Patient will be admitted for further medical management. Case discussed with who also examined the patient and is in agreement with the treatment plan. ANNALISE Cooper protocol. Admitting physician is - Lab Data Result diagrams: 08/08/20 15:48 08/08/20 18:19 Lab Results 08/08/20 08/08/20 08/08/20 Range/Units 15:48 15:48 15:48 WBC 3.7 L (3.8-10.6) k/uL RBC 4.75 (4.30-5.90) m/uL Hgb 15.6 (13.0-17.5) gm/dL Hct 45.2 (39.0-53.0) % MCV 95.2 (80.0-100.0) fL MCH 32.8 (25.0-35.0) pg MCHC 34.5 (31.0-37.0) g/dL RDW 13.2 (11.5-15.5) % Plt Count 91 L (150-450) k/uL MPV 7.7 Neutrophils % 77 % Lymphocytes % 15 % Monocytes % 5 % Eosinophils % 0 % Basophils % 1 % Neutrophils # 2.9 (1.3-7.7) k/uL Lymphocytes # 0.6 L (1.0-4.8) k/uL Monocytes # 0.2 (0-1.0) k/uL Eosinophils # 0.0 (0-0.7) k/uL Basophils # 0.0 (0-0.2) k/uL Manual Slide Review Performed VBG pH (7.31-7.41) VBG pCO2 (37-51) mmHg VBG HCO3 (24-28) mmol/L Sodium 135 L (137-145) mmol/L Potassium 4.7 (3.5-5.1) mmol/L Chloride 95 L (98-107) mmol/L Carbon Dioxide 11 L (22-30) mmol/L Anion Gap 29 mmol/L BUN 8 L (9-20) mg/dL Creatinine 0.81 (0.66-1.25) mg/dL Est GFR (CKD-EPI)AfAm >90 (>60 ml/min/1.73 sqM) Est GFR (CKD-EPI)NonAf >90 (>60 ml/min/1.73 sqM) Glucose 140 H (74-99) mg/dL Lactic Ac Sepsis Rflx Plasma Lactic Acid Huseyin (0.7-2.0) mmol/L Calcium 9.7 (8.4-10.2) mg/dL Total Bilirubin 2.1 H (0.2-1.3) mg/dL AST 306 H (17-59) U/L ALT 229 H (4-49) U/L Alkaline Phosphatase 82 (38-126) U/L Total Protein 8.8 H (6.3-8.2) g/dL Albumin 5.2 H (3.5-5.0) g/dL Lipase 479 H (23-300) U/L Urine Color Yellow Urine Appearance Clear (Clear) Urine pH 6.0 (5.0-8.0) Ur Specific [place] 1.032 (1.001-1.035) Urine Protein 3+ H (Negative) Urine Glucose (UA) Negative (Negative) Urine Ketones 4+ H (Negative) Urine Blood Small H (Negative) Urine Nitrite Negative (Negative) Urine Bilirubin 1+ H (Negative) Urine Urobilinogen 3.0 (<2.0) mg/dL Ur Leukocyte Esterase Negative (Negative) Urine RBC <1 (0-5) /hpf Urine WBC 1 (0-5) /hpf Hyaline Casts 26 H (0-2) /lpf Urine Mucus Occasional H (None) /hpf Serum Alcohol mg/dL 08/08/20 08/08/20 08/08/20 Range/Units 15:48 16:32 18:19 WBC (3.8-10.6) k/uL RBC (4.30-5.90) m/uL Hgb (13.0-17.5) gm/dL Hct (39.0-53.0) % MCV (80.0-100.0) fL MCH (25.0-35.0) pg MCHC (31.0-37.0) g/dL RDW (11.5-15.5) % Plt Count (150-450) k/uL MPV Neutrophils % % Lymphocytes % % Monocytes % % Eosinophils % % Basophils % % Neutrophils # (1.3-7.7) k/uL Lymphocytes # (1.0-4.8) k/uL Monocytes # (0-1.0) k/uL Eosinophils # (0-0.7) k/uL Basophils # (0-0.2) k/uL Manual Slide Review VBG pH (7.31-7.41) VBG pCO2 (37-51) mmHg VBG HCO3 (24-28) mmol/L Sodium 133 L (137-145) mmol/L Potassium 5.4 H (3.5-5.1) mmol/L Chloride 100 (98-107) mmol/L Carbon Dioxide 11 L (22-30) mmol/L Anion Gap 22 mmol/L BUN 7 L (9-20) mg/dL Creatinine 0.66 (0.66-1.25) mg/dL Est GFR (CKD-EPI)AfAm >90 (>60 ml/min/1.73 sqM) Est GFR (CKD-EPI)NonAf >90 (>60 ml/min/1.73 sqM) Glucose 125 H (74-99) mg/dL Lactic Ac Sepsis Rflx Y Plasma Lactic Acid Huseyin 3.4 H* (0.7-2.0) mmol/L Calcium 8.4 (8.4-10.2) mg/dL Total Bilirubin (0.2-1.3) mg/dL AST (17-59) U/L ALT (4-49) U/L Alkaline Phosphatase (38-126) U/L Total Protein (6.3-8.2) g/dL Albumin (3.5-5.0) g/dL Lipase (23-300) U/L Urine Color Urine Appearance (Clear) Urine pH (5.0-8.0) Ur Specific [place] (1.001-1.035) Urine Protein (Negative) Urine Glucose (UA) (Negative) Urine Ketones (Negative) Urine Blood (Negative) Urine Nitrite (Negative) Urine Bilirubin (Negative) Urine Urobilinogen (<2.0) mg/dL Ur Leukocyte Esterase (Negative) Urine RBC (0-5) /hpf Urine WBC (0-5) /hpf Hyaline Casts (0-2) /lpf Urine Mucus (None) /hpf Serum Alcohol <10 mg/dL 08/08/20 08/08/20 Range/Units 18:19 18:19 WBC (3.8-10.6) k/uL RBC (4.30-5.90) m/uL Hgb (13.0-17.5) gm/dL Hct (39.0-53.0) % MCV (80.0-100.0) fL MCH (25.0-35.0) pg MCHC (31.0-37.0) g/dL RDW (11.5-15.5) % Plt Count (150-450) k/uL MPV Neutrophils % % Lymphocytes % % Monocytes % % Eosinophils % % Basophils % % Neutrophils # (1.3-7.7) k/uL Lymphocytes # (1.0-4.8) k/uL Monocytes # (0-1.0) k/uL Eosinophils # (0-0.7) k/uL Basophils # (0-0.2) k/uL Manual Slide Review VBG pH 7.44 H (7.31-7.41) VBG pCO2 16 L* (37-51) mmHg VBG HCO3 11 L (24-28) mmol/L Sodium (137-145) mmol/L Potassium (3.5-5.1) mmol/L Chloride (98-107) mmol/L Carbon Dioxide (22-30) mmol/L Anion Gap mmol/L BUN (9-20) mg/dL Creatinine (0.66-1.25) mg/dL Est GFR (CKD-EPI)AfAm (>60 ml/min/1.73 sqM) Est GFR (CKD-EPI)NonAf (>60 ml/min/1.73 sqM) Glucose (74-99) mg/dL Lactic Ac Sepsis Rflx Plasma Lactic Acid Huseyin 1.3 (0.7-2.0) mmol/L Calcium (8.4-10.2) mg/dL Total Bilirubin (0.2-1.3) mg/dL AST (17-59) U/L ALT (4-49) U/L Alkaline Phosphatase (38-126) U/L Total Protein (6.3-8.2) g/dL Albumin (3.5-5.0) g/dL Lipase (23-300) U/L Urine Color Urine Appearance (Clear) Urine pH (5.0-8.0) Ur Specific [place] (1.001-1.035) Urine Protein (Negative) Urine Glucose (UA) (Negative) Urine Ketones (Negative) Urine Blood (Negative) Urine Nitrite (Negative) Urine Bilirubin (Negative) Urine Urobilinogen (<2.0) mg/dL Ur Leukocyte Esterase (Negative) Urine RBC (0-5) /hpf Urine WBC (0-5) /hpf Hyaline Casts (0-2) /lpf Urine Mucus (None) /hpf Serum Alcohol mg/dL - EKG Data EKG Comments: Sinus tachycardia Ventricular rate 110, MI 130, QRS 84, QTC 443. Disposition Clinical Impression: Transaminitis, Compensated respiratory alkalosis Disposition: ADMITTED IP TO THIS HOSP Condition: Stable Is patient prescribed a controlled substance at d/c from ED?: No Referrals: None,Stated [Primary Care Provider] - 1-2 days Time of Disposition: 19:59
[2020-08-08] MEDS ORDERED: SODIUM CHLORIDE 0.9% 1,000 ML IV STA ×2 (15:21→16:31)
[2020-08-08] MEDS ORDERED: LORazepam 2 MG/ML INJ IV STA (15:25)
[2020-08-08] MEDS ORDERED: FAMOTIDINE 20 MG/2 ML VIAL IV STA (15:26)
[2020-08-08] MEDS ORDERED: ONDANSETRON 4 MG/2 ML VIAL IVP STA (15:26)
[2020-08-08 16:22] LABS: ALT 229 U/L (4-49); AST 306 U/L (17-59); African American GFR (CKD) >90 (>60 ml/min/1.73 sqM); Albumin 5.2 g/dL (3.5-5.0); Alkaline Phosphatase 82 U/L (38-126); Anion Gap 29 mmol/L; Appearance,Urine Clear (Clear); Bilirubin,Urine 1+ (Negative); Blood Urea Nitrogen 8 mg/dL (9-20); Blood,Urine Small (Negative); Calcium 9.7 mg/dL (8.4-10.2); Carbon Dioxide 11 mmol/L (22-30); Chloride 95 mmol/L (98-107); Color,Urine Yellow; Glucose 140 mg/dL (74-99); Glucose,Urine (UA) Negative (Negative); Hyaline Casts,Urine 26 /lpf (0-2); Ketones,Urine 4+ (Negative); Leukocyte Esterase,Urine Negative (Negative); Lipase 479 U/L (23-300); Mucus,Urine Occasional /hpf; Nitrite,Urine Negative (Negative); Non-African American GFR(CKD) >90 (>60 ml/min/1.73 sqM); Potassium 4.7 mmol/L (3.5-5.1); Protein,Urine 3+ (Negative); RBC,Urine <1 /hpf (0-5); Sodium 135 mmol/L (137-145); Specific Gravity,Urine 1.032 (1.001-1.035); Total Bilirubin 2.1 mg/dL (0.2-1.3); Total Protein 8.8 g/dL (6.3-8.2); WBC,Urine 1 /hpf (0-5)
[2020-08-08 16:31] LABS: Basophils % (A) 1 %; Eosinophils % (A) 0 %; HCT 45.2 % (39.0-53.0); HGB 15.6 gm/dL (13.0-17.5); Lymphocytes # (A) 0.6 k/uL (1.0-4.8); Lymphocytes % (A) 15 %; MCH 32.8 pg (25.0-35.0); MCHC 34.5 g/dL (31.0-37.0); MCV 95.2 fL (80.0-100.0); Mean Platelet Volume 7.7; Monocytes # (A) 0.2 k/uL (0-1.0); Monocytes % (A) 5 %; Neutrophils # (A) 2.9 k/uL (1.3-7.7); Neutrophils % (A) 77 %; RBC 4.75 m/uL (4.30-5.90); RDW 13.2 % (11.5-15.5); WBC 3.7 k/uL (3.8-10.6)
[2020-08-08 16:44] LABS: Platelet Count 91 k/uL (150-450)
--- NOTE | 2020-08-08 17:22 | CT ---
EXAMINATION TYPE: CT abdomen pelvis w con DATE OF EXAM: 08/08/2020 COMPARISON: None HISTORY: Left lower quadrant pain with nausea and vomiting. CT DLP: 1049.3 mGycm Automated exposure control for dose reduction was used. TECHNIQUE: Helical acquisition of images was performed from the lung bases through the pelvis. CONTRAST: Performed without Oral Contrast and with IV Contrast, patient injected with 100 mL of Isovu e 300. FINDINGS: LUNG BASES: No significant abnormality is appreciated. LIVER/GB: No significant focal abnormality is appreciated. There is diffuse homogeneous low-attenuati on throughout the liver,. PANCREAS: No significant abnormality is seen. SPLEEN: No significant abnormality is seen. ADRENALS: No significant abnormality is seen. KIDNEYS: No significant abnormality is seen. FREE AIR: No free air is visualized. RETROPERITONEAL ADENOPATHY: None visualized REPRODUCTIVE ORGANS: No significant abnormality is seen URINARY BLADDER: No significant abnormality is seen. PELVIC ADENOPATHY: None visualized. OSSEOUS STRUCTURES: No significant abnormality is seen. BOWEL: No significant abnormality is seen. The descending and sigmoid colon have normal appearance. OTHER: Acute vascular findings. IMPRESSION: NO ACUTE PROCESS.
[2020-08-08] MEDS ORDERED: HYDROmorphone 0.5 MG/0.5 ML SYRINGE IVP STA (17:49)
[2020-08-08 18:28] LABS: VBG PH 7.44 (7.31-7.41)
[2020-08-08 18:38] LABS: African American GFR (CKD) >90 (>60 ml/min/1.73 sqM); Alcohol <10 mg/dL; Anion Gap 22 mmol/L; Blood Urea Nitrogen 7 mg/dL (9-20); Calcium 8.4 mg/dL (8.4-10.2); Carbon Dioxide 11 mmol/L (22-30); Chloride 100 mmol/L (98-107); Glucose 125 mg/dL (74-99); Non-African American GFR(CKD) >90 (>60 ml/min/1.73 sqM); Potassium 5.4 mmol/L (3.5-5.1); Sodium 133 mmol/L (137-145)
[2020-08-08] MEDS ORDERED: THIAMINE 100 MG/ML 2 ML VIAL IM STA (19:13)
[2020-08-08] MEDS ORDERED: LORazepam 2 MG/ML INJ IV PRN ×2 (19:13)
[2020-08-08] MEDS ORDERED: ONDANSETRON 4 MG/2 ML VIAL IVP PRN (19:52)
[2020-08-08] MEDS ORDERED: MORPHINE SULFATE 4 MG/ML SYRINGE IV PRN (19:52)
[2020-08-08] MEDS ORDERED: NALOXONE 0.4 MG/ML 1 ML VIAL IV PRN (19:52)
[2020-08-08] MEDS: SODIUM CHLORIDE 0.9% 1,000 ML IV SCH (20:09)
[2020-08-08] MEDS: HYDROmorphone 0.5 MG/0.5 ML SYRINGE IVP PRN (22:49)
--- NOTE | 2020-08-09 02:02 | P.HPIM ---
History of Present Illness H&P Date: 08/09/20 Patient is a 35-year-old male with a PMH of EtOH abuse and anxiety disorder who presented to the emergency room with complaints of nausea and vomiting. The patient reports that he had been drinking roughly 1 pint of vodka daily for the past 10 years and had been trying to cut down. He reports that his last drink was roughly 24 hours prior to presentation. He reports that earlier today, he gradually developed nausea with subsequent 5-6 episodes of nonbloody nonbilious emesis. Reports that he had left flank abdominal pain at the onset of the nausea which subsequently resolved. Also reports having 2-3 loose bowel movements daily for the past 2 days. Reports that due to his vomiting, he has not been able to eat or drink much throughout the day. He also reported feeling shaky. Denied a history of alcohol withdrawal seizures. Reports that he was very anxious at time of arrival to the emergency room and was hyperventilating, which has subsequently improved. Denied chest discomfort, shortness of breath, fever, chills, cough. He underwent an extensive evaluation in the emergency ro om which was all reviewed. CT abdomen and pelvis was unremarkable. Laboratory evaluation was remarkable for a VBG showing pCO2 of 16 and pH 7.44. Sodium was 133, potassium 5.4, bicarb 11, lactic acid 3.4, total bilirubin 2.1, AST 306, ALT 229, albumin 5.2, and lipase 479. Review of Systems Pertinent positives and negatives as discussed in HPI, a complete review of sy stems was performed and all other systems are negative. Past Medical History Past Medical History: No Reported History History of Any Multi-Drug Resistant Organisms: None Reported Past Surgical History: No Surgical Hx Reported Past Anesthesia/Blood Transfusion Reactions: No Reported Reaction Past Psychological History: No Psychological Hx Reported Smoking Status: Never smoker Past Alcohol Use History: Daily Past Drug Use History: None Reported - Past Family History Father Family Medical History: Hypertension Brother(s) Additional Family Medical History / Comment(s): chrones Medications and Allergies Home Medications Medication Instructions Recorded Confirmed Type Ibuprofen [Motrin Ib] 400 mg PO Q8H PRN 08/08/20 08/08/20 History Allergies Allergy/AdvReac Type Severity Reaction Status Date / Time No Known Allergies Allergy Verified 08/08/20 17:49 Physical Exam Vitals: Vital Signs Temp Pulse Resp BP Pulse Ox 08/08/20 20:00 98 20 144/103 98 08/08/20 17:32 113 H 16 153/98 98 08/08/20 15:07 157/95 08/08/20 15:03 98.8 F 138 H 16 95 Intake and Output 08/08/20 08/08/20 08/08/20 06:59 14:59 22:59 Other: Weight 90.718 kg General: non toxic, no distress, appears at stated age, overweight Derm: no unusual rashes/lesions no unusual ecchymoses, warm, dry Head: atraumatic, normocephalic, symmetric Eyes: EOMI, no lid lag, anicteric sclera, pupils equal round reactive to light ENT: Nose and ears atraumatic, no thrush, no pharyngeal erythema Neck: No thyromegaly, no cervical lymphadenopathy, trachea midline, supple Mouth: no lip lesion, mucus membranes moist Cardiovascular: S1S2 reg, no murmur, positive posterior tibial pulse bilateral, no edema, capillary refill less than 2 seconds Lungs: CTA bilateral, no rhonchi, no rales , no accessory muscle use Abdominal: soft, mild left flank tenderness, no guarding, no appreciable organomegaly, normal bowel sounds Ext: no gross muscle atrophy, muscle strength 5 out of 5 in all 4 extremities grossly, no contractures, Neuro: CN II-XI grossly intact, light touch intact all 4 extremities, outstretched fine hand tremor noted with tongue fasciculations Psych: Alert, oriented, appropriate affect , tremulous Results CBC & Chem 7: 08/08/20 15:48 08/08/20 18:19 Labs: Abnormal Lab Results - Last 24 Hours (Table) 08/08/20 08/08/20 08/08/20 Range/Units 15:48 15:48 15:48 WBC 3.7 L (3.8-10.6) k/uL Plt Count 91 L (150-450) k/uL Lymphocytes # 0.6 L (1.0-4.8) k/uL VBG pH (7.31-7.41) VBG pCO2 (37-51) mmHg VBG HCO3 (24-28) mmol/L Sodium 135 L (137-145) mmol/L Potassium (3.5-5.1) mmol/L Chloride 95 L (98-107) mmol/L Carbon Dioxide 11 L (22-30) mmol/L BUN 8 L (9-20) mg/dL Glucose 140 H (74-99) mg/dL Plasma Lactic Acid Huseyin (0.7-2.0) mmol/L Total Bilirubin 2.1 H (0.2-1.3) mg/dL AST 306 H (17-59) U/L ALT 229 H (4-49) U/L Total Protein 8.8 H (6.3-8.2) g/dL Albumin 5.2 H (3.5-5.0) g/dL Lipase 479 H (23-300) U/L Urine Protein 3+ H (Negative) Urine Ketones 4+ H (Negative) Urine Blood Small H (Negative) Urine Bilirubin 1+ H (Negative) Hyaline Casts 26 H (0-2) /lpf Urine Mucus Occasional H (None) /hpf 08/08/20 08/08/20 08/08/20 Range/Units 15:48 18:19 18:19 WBC (3.8-10.6) k/uL Plt Count (150-450) k/uL Lymphocytes # (1.0-4.8) k/uL VBG pH 7.44 H (7.31-7.41) VBG pCO2 16 L* (37-51) mmHg VBG HCO3 11 L (24-28) mmol/L Sodium 133 L (137-145) mmol/L Potassium 5.4 H (3.5-5.1) mmol/L Chloride (98-107) mmol/L Carbon Dioxide 11 L (22-30) mmol/L BUN 7 L (9-20) mg/dL Glucose 125 H (74-99) mg/dL Plasma Lactic Acid Huseyin 3.4 H* (0.7-2.0) mmol/L Total Bilirubin (0.2-1.3) mg/dL AST (17-59) U/L ALT (4-49) U/L Total Protein (6.3-8.2) g/dL Albumin (3.5-5.0) g/dL Lipase (23-300) U/L Urine Protein (Negative) Urine Ketones (Negative) Urine Blood (Negative) Urine Bilirubin (Negative) Hyaline Casts (0-2) /lpf Urine Mucus (None) /hpf Assessment and Plan Plan: EtOH abuse with impending withdrawal -Continue with IV fluids -Monitor electrolytes -Thiamine, folate, multivitamin -Fall, aspiration, seizure precautions -CIWA protocol Abdominal pain with nausea vomiting, suspected alcoholic gastritis vs viral gastroenteritis -C/w supportive measures Lactic acidosis -Monitor for resolution Metabolic derangements: High anion and gap metabolic acidosis (fasting ketosis and lactic acidosis) along with respiratory alkalosis (hyperventilation from anxiety) -Continue with IV fluids Abnormal LFTs -Likely due to EtOH abuse -Continue to monitor for now DVT prophylaxis -Heparin subq The patient is admitted with an anticipated greater than 2 midnight stay for evaluation of EtOH withdrawal CODE STATUS: Full Code Discussed with: Patient Anticipated discharge date: 2-[address]: Home A total of 40 minutes was spent on the care of this complex patient more than 50% of the time was spent in counseling and care coordination.
[2020-08-09] MEDS: HYDROmorphone 0.5 MG/0.5 ML SYRINGE IVP PRN (03:06)
[2020-08-09] MEDS: LORazepam 2 MG/ML INJ IV PRN (03:44)
[2020-08-09 05:31] LABS: ABG Base Excess -7.7 mmol/L; ABG HCO3 18 mmol/L (21-25); ABG Oxygen Saturation 98.6 % (94-97); ABG PCO2 33 mmHg (35-45); ABG PH 7.35 (7.35-7.45); ABG PO2 93 mmHg (83-108); ABG TCO2 19 mmol/L (19-24); Allen Test Performed? Yes
[2020-08-09 06:27] LABS: HCT 39.5 % (39.0-53.0); HGB 13.8 gm/dL (13.0-17.5); MCH 33.7 pg (25.0-35.0); MCHC 34.8 g/dL (31.0-37.0); MCV 96.7 fL (80.0-100.0); Mean Platelet Volume 7.9; RBC 4.09 m/uL (4.30-5.90); RDW 12.7 % (11.5-15.5)
[2020-08-09 06:30] LABS: Platelet Count 73 k/uL (150-450)
[2020-08-09] MEDS: THIAMINE 100 MG TAB PO SCH ×2 (07:34→17:18)
[2020-08-09] MEDS ORDERED: HEPARIN SODIUM,PORCINE 5,000 UNIT/ML 1 ML VIAL SQ SCH (08:00)
[2020-08-09] MEDS ORDERED: PANTOPRAZOLE 40 MG/10 ML VIAL IV SCH (09:00)
[2020-08-09] MEDS: MORPHINE SULFATE 4 MG/ML SYRINGE IV PRN ×3 (09:37→21:37)
[2020-08-09 09:54] LABS: African American GFR (CKD) 113.3 (60.0-200.0); Albumin 4.6 g/dL (3.80-4.90); Albumin/Globulin Ratio 2.3 (1.60-3.17); Anion Gap 15.2 mmol/L (4.00-12.00); Carbon Dioxide 20.8 mmol/L (21.6-31.8); Magnesium 1.7 mg/dL (1.5-2.4); Non-African American GFR(CKD) 97.8 (60.0-200.0); Phosphorus 1.9 mg/dL (2.4-5.1); Potassium 4.3 mmol/L (3.5-5.5); Total Bilirubin 1.6 mg/dL (0.3-1.2); Total Protein 6.6 g/dL (6.2-8.2)
[2020-08-09] MEDS: FOLIC ACID 1 MG TAB PO SCH (10:01)
[2020-08-09] MEDS: SODIUM CHLORIDE 0.9% 1,000 ML IV SCH ×3 (12:31→20:05)
--- NOTE | 2020-08-09 12:53 | P.PN ---
Subjective Progress Note Date: 08/09/20 Principal diagnosis: Alcohol withdrawal Hospital course: Patient is a 35-year-old male with a past medical history of EtOH use/abuse and anxiety disorder. He presented to the emergency department with a chief complaint of uncontrolled nausea and vomiting after stopping drinking alcohol 24 hours prior. Patient reports he typically drinks 1 pint of vodka daily for the past 10 years and has been trying to quit. Patient states that he previously has been in to the hospital for detox and quit drinking for 3 months but that was almost 5 years ago. Patient states he understands what alcohol is doing to him and understands that he needs to quit drinking. Patient states he is unable and does not want to go to in-patient rehab because of his children. Patient was admitted for alcohol abuse with impending withdrawal and abdominal pain with nausea and vomiting. CT abdomen and pelvis was obtained negative for acute process. Labs revealed neutropenia with WBC count of 3.0 and thrombocytopenia with platelet count of 73. Liver profile abnormal with a total bili of 1.6, AST 190, and ALT of 172. Lipase was elevated at 479. Physical exam: Patient was seen and fully evaluated at the bedside. He reports continued pain to left upper quadrant and left flank. He denies having any further episodes of vomiting since arrival but continues to report nausea. Diet modifications made at this time placing patient on clear liquid diet, is nausea remains will make patient NPO. Patient has had a total of 2 mg of Ativan over the past 24 hours. No tremors or diaphoresis noted in patient reports that his anxiety has improved. He denies having any headache, lightheadedness, dizziness, changes in vision or hearing, chest pain or palpitations, shortness of breath, or experiencing any numbness/tingling/weakness in extremities. General: non toxic, no distress, appears at stated age Derm: warm, dry Head: atraumatic, normocephalic, symmetric Eyes: EOMI, no lid lag, anicteric sclera Mouth: no lip lesion, mucus membranes moist Cardiovascular: S1S2 reg, no murmur, positive posterior tibial pulses bilaterally, cap refill less than 2 seconds Lungs: CTA bilateral, no rhonchi, no rales, no wheezing and no accessory muscle use Abdominal: soft, nontender to palpation, no guarding, no appreciable organomegaly Ext: no gross muscle atrophy, no edema, no contractures Neuro: Speech clear, CN II-XI grossly intact, no focal neuro deficits, no tremors. Psych: Alert, oriented, appropriate affect Plan of care: EtOH abuse with withdrawal -[facility] protocol with symptom triggered medication management. -Continued hydration with IV fluids. -Daily thiamine, folate, and multivitamin. -Fall precautions, seizure precautions, and aspiration precautions in place. -Continue close monitoring of electrolytes with repeat a.m. labs. -Patient opposed at this time for inpatient drug and alcohol rehabilitation program and was given information regarding out patient programs available to him. Abdominal pain with nausea and vomiting, alcoholic gastritis with pancreatitis -Patient continues to have left upper quadrant and left flank pain accompanied by mild nausea lipase elevated at 479. -Previously on regular diet with continued nausea, patient placed on clear liquids only and if nausea persists we will make NPO. -Continued hydration with IV fluids. -Symptomatic care with pain management and antiemetics. -Repeat lipase with a.m. labs. Lactic acidosis, resolved -Initial lactate 3.4, repeat 1.3 Metabolic derangements: High anion gap metabolic acidosis (fasting ketosis and lactic acidosis) along with respiratory alkalosis (hyperventilation from anxiety), improving -Initially pCO2 of 16, bicarb 11, and a pH of 7.44. This has improved with pCO2 33, bicarb 18, and pH of 7.35. -Anion gap improving from 22 down to 15.20 -Continued hydration with IV fluids. Elevated LFTs, improving -Likely secondary to EtOH abuse -Liver enzymes remain elevated but improving with a total bili of 1.6, AST 190, and ALT of 172. Thrombocytopenia -Platelet count was 91 with repeat of 73. -Likely secondary to chronic EtOH abuse and abnormal LFTs. -Discontinue DVT prophylaxis with subcu heparin and place patient on SCDs for DVT prophylaxis. CODE STATUS: Full code DVT prophylaxis: SCDs secondary to thrombocytopenia Discussed with: Patient and RN Anticipated discharge date: 1-[address]: Home A total of 45 minutes was spent on the care of this complex patient more than 50% of the time was spent in counseling and care coordination. Objective - Vital Signs Vital signs: Vital Signs Temp 98.5 F 08/09/20 06:37 Pulse 102 H 08/09/20 06:37 Resp 16 08/09/20 06:37 BP 146/99 08/09/20 06:37 Pulse Ox 98 08/09/20 06:37 Intake & Output 08/08/20 08/09/20 08/09/20 18:59 06:59 18:59 Intake Total 300 Balance 300 Weight 90.718 kg 90.718 kg Intake: Oral 300 Other: Voiding Method Toilet # Voids 1 - Labs CBC & Chem 7: 08/09/20 05:42 08/09/20 05:42 Labs: Abnormal Lab Results - Last 24 Hours (Table) 08/08/20 08/08/20 08/08/20 Range/Units 15:48 15:48 15:48 WBC 3.7 L (3.8-10.6) k/uL RBC (4.30-5.90) m/uL Plt Count 91 L (150-450) k/uL Lymphocytes # 0.6 L (1.0-4.8) k/uL ABG pCO2 (35-45) mmHg ABG HCO3 (21-25) mmol/L ABG O2 Saturation (94-97) % VBG pH (7.31-7.41) VBG pCO2 (37-51) mmHg VBG HCO3 (24-28) mmol/L Sodium 135 L (137-145) mmol/L Potassium (3.5-5.1) mmol/L Chloride 95 L (98-107) mmol/L Carbon Dioxide 11 L (22-30) mmol/L Anion Gap (4.00-12.00) mmol/L BUN 8 L (9-20) mg/dL BUN/Creatinine Ratio (12.00-20.00) Ratio Glucose 140 H (74-99) mg/dL Plasma Lactic Acid Huseyin (0.7-2.0) mmol/L Phosphorus (2.4-5.1) mg/dL Total Bilirubin 2.1 H (0.2-1.3) mg/dL AST 306 H (17-59) U/L ALT 229 H (4-49) U/L Total Protein 8.8 H (6.3-8.2) g/dL Albumin 5.2 H (3.5-5.0) g/dL Lipase 479 H (23-300) U/L Urine Protein 3+ H (Negative) Urine Ketones 4+ H (Negative) Urine Blood Small H (Negative) Urine Bilirubin 1+ H (Negative) Hyaline Casts 26 H (0-2) /lpf Urine Mucus Occasional H (None) /hpf 08/08/20 08/08/20 08/08/20 Range/Units 15:48 18:19 18:19 WBC (3.8-10.6) k/uL RBC (4.30-5.90) m/uL Plt Count (150-450) k/uL Lymphocytes # (1.0-4.8) k/uL ABG pCO2 (35-45) mmHg ABG HCO3 (21-25) mmol/L ABG O2 Saturation (94-97) % VBG pH 7.44 H (7.31-7.41) VBG pCO2 16 L* (37-51) mmHg VBG HCO3 11 L (24-28) mmol/L Sodium 133 L (137-145) mmol/L Potassium 5.4 H (3.5-5.1) mmol/L Chloride (98-107) mmol/L Carbon Dioxide 11 L (22-30) mmol/L Anion Gap (4.00-12.00) mmol/L BUN 7 L (9-20) mg/dL BUN/Creatinine Ratio (12.00-20.00) Ratio Glucose 125 H (74-99) mg/dL Plasma Lactic Acid Huseyin 3.4 H* (0.7-2.0) mmol/L Phosphorus (2.4-5.1) mg/dL Total Bilirubin (0.2-1.3) mg/dL AST (17-59) U/L ALT (4-49) U/L Total Protein (6.3-8.2) g/dL Albumin (3.5-5.0) g/dL Lipase (23-300) U/L Urine Protein (Negative) Urine Ketones (Negative) Urine Blood (Negative) Urine Bilirubin (Negative) Hyaline Casts (0-2) /lpf Urine Mucus (None) /hpf 08/09/20 08/09/20 08/09/20 Range/Units 05:21 05:42 05:42 WBC 3.0 L (3.8-10.6) k/uL RBC 4.09 L (4.30-5.90) m/uL Plt Count 73 L (150-450) k/uL Lymphocytes # (1.0-4.8) k/uL ABG pCO2 33 L (35-45) mmHg ABG HCO3 18 L (21-25) mmol/L ABG O2 Saturation 98.6 H (94-97) % VBG pH (7.31-7.41) VBG pCO2 (37-51) mmHg VBG HCO3 (24-28) mmol/L Sodium (137-145) mmol/L Potassium (3.5-5.1) mmol/L Chloride (98-107) mmol/L Carbon Dioxide 20.8 L (22-30) mmol/L Anion Gap 15.20 H (4.00-12.00) mmol/L BUN 8.0 L (9-20) mg/dL BUN/Creatinine Ratio 8.00 L (12.00-20.00) Ratio Glucose 112 H (74-99) mg/dL Plasma Lactic Acid Huseyin (0.7-2.0) mmol/L Phosphorus 1.9 L (2.4-5.1) mg/dL Total Bilirubin 1.6 H (0.2-1.3) mg/dL AST 190 H (17-59) U/L ALT 172 H (4-49) U/L Total Protein (6.3-8.2) g/dL Albumin (3.5-5.0) g/dL Lipase (23-300) U/L Urine Protein (Negative) Urine Ketones (Negative) Urine Blood (Negative) Urine Bilirubin (Negative) Hyaline Casts (0-2) /lpf Urine Mucus (None) /hpf
[2020-08-09 13:35] VITALS: BMI 28.7
[2020-08-10] MEDS: SODIUM CHLORIDE 0.9% 1,000 ML IV SCH ×2 (05:13→13:01)
[2020-08-10] MEDS: LORazepam 2 MG/ML INJ IV PRN (06:03)
[2020-08-10 06:43] LABS: HCT 40.6 % (39.0-53.0); HGB 14.2 gm/dL (13.0-17.5); MCH 33.7 pg (25.0-35.0); MCV 96.2 fL (80.0-100.0); Mean Platelet Volume 8.1; Platelet Count 72 k/uL (150-450); RBC 4.22 m/uL (4.30-5.90); RDW 12.8 % (11.5-15.5); WBC 2.2 k/uL (3.8-10.6)
[2020-08-10] MEDS: FOLIC ACID 1 MG TAB PO SCH (07:42)
[2020-08-10] MEDS: THIAMINE 100 MG TAB PO SCH (07:42)
[2020-08-10] MEDS: MORPHINE SULFATE 4 MG/ML SYRINGE IV PRN ×2 (07:44→12:05)
[2020-08-10 08:07] VITALS: BP 164/96; PULSE 94; RESP 16; TEMP 98.8
[2020-08-10] MEDS ORDERED: PANTOPRAZOLE 40 MG TABLET PO SCH (09:00)
[2020-08-10] MEDS ORDERED: amLODIPine 2.5 MG TAB PO STA ×2 (09:13→11:53)
--- NOTE | 2020-08-10 09:16 | P.DS ---
Providers Date of admission: 08/08/20 19:19 Expected date of discharge: 08/10/20 Attending physician: Joanna Lamb MD Primary care physician: Stated None Hospital Course: This is a 35-year-old male with past medical history significant for heavy alcohol abuse and anxiety disorder who presented to the emergency room with nausea, vomiting, and some abdominal discomfort. Patient was evaluated in the ER and admitted to the hospital for further management of his medical problems noted below. 1. Alcohol abuse with withdrawal, treated with aggressive IV fluid hydration and Valium. CIWA protocol as needed. No signs of withdrawal. Started on folate and thiamine. 2. Nausea and vomiting with mild abdominal pain on presentation. Computed tomography scan of the abdomen in the ER showed no acute findings. Lipase only slightly elevated. Improved with symptomatic management. Patient was able to tolerate regular diet with no difficulty. He will be started on Protonix 40 mg daily to help with any alcoholic induced gastritis. 3. Newly diagnosed essential hypertension, patient continued to have elevated blood pressure during this hospital stay. He reports a family history of hypertension. He was started on Norvasc 2.5 mg daily advised to monitor his blood pressure closely at home and follow up with his PCP as directed. 4. Mild transaminitis, alcohol induced 5. Thrombocytopenia, secondary to alcohol 6. Alcohol abuse, counseled extensively to quit. Patient verbalized understanding that he should stop drinking. Patient will be discharged home in a stable condition. For further details about this hospitalization please refer to the electronic chart. Time spent on discharge > 30 minutes including counseling and coordination of care Patient Condition at Discharge: Stable Plan - Discharge Summary Discharge Rx Participant: No New Discharge Prescriptions: New Folic Acid 1 mg PO DAILY #30 tab amLODIPine BESYLATE [Norvasc] 2.5 mg PO DAILY #30 tab Pantoprazole [Protonix] 40 mg PO DAILY #30 tablet. Thiamine [Vitamin B-1] 100 mg PO BID-W/MEALS #14 tab Discontinued Ibuprofen [Motrin Ib] 400 mg PO Q8H PRN PRN Reason: Fever And/ Or Pain Discharge Medication List Folic Acid 1 mg PO DAILY #30 tab 08/10/20 [Rx] Pantoprazole [Protonix] 40 mg PO DAILY #30 tablet. 08/10/20 [Rx] Thiamine [Vitamin B-1] 100 mg PO BID-W/MEALS #14 tab 08/10/20 [Rx] amLODIPine BESYLATE [Norvasc] 2.5 mg PO DAILY #30 tab 08/10/20 [Rx] Follow up Appointment(s)/Referral(s): None,Stated [Primary Care Provider] - 1-2 days Tyler Rodriguez [STAFF PHYSICIAN] - 1 Week Discharge Disposition: HOME SELF-CARE
[2020-08-10 09:40] LABS: African American GFR (CKD) 142.7 (60.0-200.0); Anion Gap 14.8 mmol/L (4.00-12.00); BUN/Creat Ratio 8.57 Ratio (12.00-20.00); Calcium 8.8 mg/dL (8.7-10.3); Carbon Dioxide 23.2 mmol/L (21.6-31.8); Non-African American GFR(CKD) 123.1 (60.0-200.0); Potassium 3.7 mmol/L (3.5-5.5)
--- NOTE | 2020-08-13 20:52 | CDI ---
Documentation Clarification Form Date: 08/14/20 From: Panda Crawley Phone: If you have a question about this query, please contact Adina Cedillo, Television Cameraman at [phone] between 8am and 5pm. Admit Date: 08/08/2020 07:19:00 PM Patient Name: Skyler Pink Visit Number: [id number] Discharge Date: 08/10/2020 02:18:00 PM ATTENTION: The Clinical Documentation Specialists (CDI) and [facility] Coding Staff appreciate your assistance in clarifying documentation. Please respond to the clarification below the line at the bottom and electronically sign. The CDI & [facility] Coding staff will review the response and follow-up if needed. Please note: Queries are made part of the Legal Health Record. If you have any questions, please contact the author of this message via ITS. Dr. Franky Kenney MD., Alcohol abuse with withdrawal, treated with aggressive IV fluid hydration and Valium.CIWA protocol as needed.No signs of withdrawal.Started on folate and thiamine. History/Risk Factors: alcohol abuse, Hyponatremia, elevated lipase Clinical Indicators: Mild transaminitis, alcohol induced Lab findings:Lipase was elevated at 479. Radiology findings: no additional changes 08/09 Progress notes stated "Abdominal pain with nausea and vomiting, alcoholic gastritis with pancreatitis -Patient continues to have left upper quadrant and left flank pain accompanied by mild nausea lipase elevated at 479. -Previously on regular diet with continued nausea, patient placed on clear li quids only and if nausea persists we will make NPO. -Continued hydration with IV fluids. -Symptomatic care with pain management and antiemetics. -Repeat lipase with a.m. labs. In your professional opinion, can you please clarify Pancreatitis Presence? YES NO Other, please specify Unable to determine Yes, mild pancreatitis MTDD
== END 2020-08-10 14:18 | disposition home or self-care (01) | DRG 391 ==
LOC: EC 14:51 → 5NMEDONC 19:19 → 4SSUR 20:03
PROVIDERS: ADMIT Internal Medicine; ATTEND Internal Medicine
DX: K29.70 Gastritis, unspecified, without bleeding (principal); K85.90 Acute pancreatitis without necrosis or infection, unspecified; F10.239 Alcohol dependence with withdrawal, unspecified; E87.1 Hypo-osmolality and hyponatremia; E87.4 Mixed disorder of acid-base balance; D70.9 Neutropenia, unspecified; D69.59 Other secondary thrombocytopenia; F41.9 Anxiety disorder, unspecified; Z20.822 Contact with and (suspected) exposure to COVID-19; Y90.0 Blood alcohol level of less than 20 mg/100 ml; I10 Essential (primary) hypertension; Z82.49 Family history of ischemic heart disease and other diseases of the circulatory system; Z79.899 Other long term (current) drug therapy
CPT/HCPCS: 36415; 36600; 74177; 80048; 80053; 80320; 81001; 82803; 82805; 83605; 83690; 83735; 84100; 85025; 85027; 87635; 93005; 96361; 96372; 96374; 96375; 99285

== ENCOUNTER 2021-01-06 19:09 | Emergency (ER) | payer OTHER ==
[2021-01-06 19:22] VITALS: BP 133/87; PULSE 120; RESP 16; TEMP 98.3
[2021-01-06] MEDS ORDERED: LIDOCAINE 1% INJ 10MG/ML (20 ML MDV) SQ ONE (19:42)
--- NOTE | 2021-01-06 20:10 | ED ---
General Adult HPI - General Chief complaint: Skin/Abscess/Foreign Body Stated complaint: fish hook in finger Time Seen by Provider: 01/06/21 19:42 Source: patient, RN notes reviewed Mode of arrival: ambulatory Limitations: no limitations - History of Present Illness Initial comments: 35-year-old male presents emergency Department chief complaint of fishhook in his right hand index finger. Patient states his happened just prior arrival he states tetanus up-to-date last 5 years. Patient states is moderate discomfort patient offers no other complaints. - Related Data Previous Rx's Medication Instructions Recorded Folic Acid 1 mg PO DAILY #30 tab 08/10/20 Pantoprazole [Protonix] 40 mg PO DAILY #30 tablet. 08/10/20 Thiamine [Vitamin B-1] 100 mg PO BID-W/MEALS #14 tab 08/10/20 amLODIPine [Norvasc] 5 mg PO DAILY #30 tab 08/10/20 Cephalexin [Keflex] 500 mg PO Q6HR #28 cap 01/06/21 Allergies Allergy/AdvReac Type Severity Reaction Status Date / Time No Known Allergies Allergy Verified 01/06/21 19:20 Review of Systems ROS Statement: Those systems with pertinent positive or pertinent negative responses have been documented in the HPI. ROS Other: All systems not noted in ROS Statement are negative. Past Medical History Past Medical History: No Reported History History of Any Multi-Drug Resistant Organisms: None Reported Past Surgical History: No Surgical Hx Reported Past Anesthesia/Blood Transfusion Reactions: No Reported Reaction Past Psychological History: Depression Smoking Status: Never smoker Past Alcohol Use History: Daily Past Drug Use History: Marijuana - Past Family History Father Family Medical History: Hypertension Brother(s) Additional Family Medical History / Comment(s): bren[place] General Exam Limitations: no limitations General appearance: alert, in no apparent distress Head exam: Present: atraumatic, normocephalic, normal inspection Respiratory exam: Present: normal lung sounds bilaterally. Absent: respiratory distress, wheezes, rales, rhonchi, stridor Cardiovascular Exam: Present: regular rate, normal rhythm, normal heart sounds. Absent: systolic murmur, diastolic murmur, rubs, gallop, clicks Extremities exam: Present: other (Right hand second digit distal portion there is noted fishhook with no active bleeding, refill less than 2 seconds) Course Vital Signs 01/06/21 19:20 Temperature 98.3 F Pulse Rate 120 H Respiratory 16 Rate Blood Pressure 133/87 O2 Sat by Pulse 100 Oximetry Procedures - Forgein Body Removal Soft Tissue Consent Obtained: verbal consent Site: hand (Right hand second digit) Anesthetic Used: lidocaine 1%, without epi Amount (mLs): 2 Foreign Body Suspected: Fish Hook Foreign Body Removed: yes Foreign Body Removal Technique: Instrumentation Patient Tolerated Procedure: well, no complications Medical Decision Making - Medical Decision Making Foreign body was removed with no compilations neurovascular intact tetanus is up-to-date condition discharged on antibiotics. Disposition Clinical Impression: Fish hook injury of finger of right hand Disposition: HOME SELF-CARE Condition: Stable Instructions (If sedation given, give patient instructions): Soft Tissue Foreign Body (ED) Additional Instructions: Please return to the Emergency Department if symptoms worsen or any other concerns. Prescriptions: Cephalexin [Keflex] 500 mg PO Q6HR #28 cap Is patient prescribed a controlled substance at d/c from ED?: No Referrals: Tyler Rodriguez [Primary Care Provider] - 1-2 days Time of Disposition: 20:10
[2021-01-06] MEDS ORDERED: BACITRACIN OINT 1 EACH PACKET TOPICAL ONE (20:15)
== END 2021-01-06 20:25 | disposition home or self-care (01) ==
LOC: EC 19:09
DX: S61.441A Puncture wound with foreign body of right hand, initial encounter (principal); F32.9 Major depressive disorder, single episode, unspecified; F12.90 Cannabis use, unspecified, uncomplicated; W45.8XXA Other foreign body or object entering through skin, initial encounter
CPT/HCPCS: 99283; 10120; J2001

== ENCOUNTER 2021-06-02 14:36 | Emergency (ER) | payer OTHER ==
[2021-06-02 18:33] VITALS: BP 117/80; PULSE 122; RESP 118
[2021-06-02] MEDS ORDERED: IBUPROFEN 600 MG TAB PO STA (20:44)
[2021-06-02] MEDS ORDERED: DEXAMETHASONE SOD PHOSPHATE 10 MG/ML 1 ML VIAL IM STA (20:44)
[2021-06-02] MEDS ORDERED: ACETAMINOPHEN TAB 325 MG TAB PO STA (20:44)
--- NOTE | 2021-06-02 21:18 | ED ---
URI HPI - General Chief Complaint: Upper Respiratory Infection Stated Complaint: Covid Positive, KENNETH Time Seen by Provider: 06/02/21 20:43 Source: patient, RN notes reviewed Mode of arrival: ambulatory Limitations: no limitations - History of Present Illness Initial Comments: Patient is a 35-year-old male that presents to the emergency department compla ining of being Covid positive. He notes he is having some shortness of breath fatigue fever. She denied any severe symptoms. He was otherwise well-appearing resting comfortably in bed in no apparent distress. He denied any chest pain headache nausea vomiting diarrhea constipation fever fatigue chills. - Related Data Previous Rx's Medication Instructions Recorded Folic Acid 1 mg PO DAILY #30 tab 08/10/20 Pantoprazole [Protonix] 40 mg PO DAILY #30 tablet.dr 08/10/20 Thiamine [Vitamin B-1] 100 mg PO BID-W/MEALS #14 tab 08/10/20 amLODIPine [Norvasc] 5 mg PO DAILY #30 tab 08/10/20 Cephalexin [Keflex] 500 mg PO Q6HR #28 cap 01/06/21 Allergies Allergy/AdvReac Type Severity Reaction Status Date / Time No Known Allergies Allergy Verified 06/02/21 18:29 Review of Systems ROS Statement: Those systems with pertinent positive or pertinent negative responses have been documented in the HPI. ROS Other: All systems not noted in ROS Statement are negative. Past Medical History Past Medical History: No Reported History History of Any Multi-Drug Resistant Organisms: None Reported Past Surgical History: No Surgical Hx Reported Past Anesthesia/Blood Transfusion Reactions: No Reported Reaction Past Psychological History: Anxiety, Depression Smoking Status: Never smoker Past Alcohol Use History: None Reported, Daily Past Drug Use History: None Reported, Marijuana - Past Family History Father Family Medical History: Hypertension Brother(s) Additional Family Medical History / Comment(s): chrones General Exam Limitations: no limitations General appearance: alert, in no apparent distress Head exam: Present: atraumatic, normocephalic, normal inspection Eye exam: Present: normal appearance, PERRL, EOMI. Absent: scleral icterus, conjunctival injection, periorbital swelling ENT exam: Present: normal exam, mucous membranes moist Neck exam: Present: normal inspection Respiratory exam: Present: normal lung sounds bilaterally. Absent: respiratory distress, wheezes, rales, rhonchi, stridor Cardiovascular Exam: Present: regular rate, normal rhythm, normal heart sounds. Absent: systolic murmur, diastolic murmur, rubs, gallop, clicks GI/Abdominal exam: Present: soft, normal bowel sounds. Absent: distended, tenderness, guarding, rebound, rigid Extremities exam: Present: normal inspection, full ROM, normal capillary refill. Absent: tenderness, pedal edema, joint swelling, calf tenderness Neurological exam: Present: alert, oriented X3 Psychiatric exam: Present: normal affect, normal mood Skin exam: Present: warm, dry, intact, normal color. Absent: rash Course Vital Signs 06/02/21 18:30 Temperature 100.7 F H Pulse Rate 122 H Respiratory 118 H Rate Blood Pressure 117/80 O2 Sat by Pulse 97 Oximetry Medical Decision Making - Medical Decision Making 45-year-old male Covid positive with fever cough shortness breath. Chest x-ray, 10 mg of Decadron, 650 mg of Tylenol, 600 mg of Motrin ordered. Patient does meet criteria for monoclonal antibody infusion. He does wish to undergo infusion. Patient is a remote discharge home after. Case discussed with Dr. Sam, patient discharge home after. - Radiology Data Radiology results: report reviewed, image reviewed X-ray: Subsegmental atelectasis left lower lobe. Normal heart. Disposition Clinical Impression: COVID Disposition: HOME SELF-CARE Condition: Stable Instructions (If sedation given, give patient instructions): Coronavirus Disease 2019 (COVID-19) Additional Instructions: Please return to the Emergency Department if symptoms worsen or any other concerns. Follow-up with primary care 1-2 days. Quarantine per CDC guidelines. Take Tylenol Motrin as needed for pain or fevers. Is patient prescribed a controlled substance at d/c from ED?: No Referrals: Tyler Rodriguez [Primary Care Provider] - 1-2 days Time of Disposition: 21:56
[2021-06-02] MEDS ORDERED: SODIUM CHLORIDE 0.9% 50 ML IVPB ONE (21:30)
--- NOTE | 2021-06-02 21:44 | XR ---
EXAMINATION TYPE: XR chest 2V DATE OF EXAM: 06/02/2021 COMPARISON: NONE HISTORY: Short of breath TECHNIQUE: 2 views FINDINGS: Heart is normal. Lungs are clear of consolidation. There are no hilar masses. There is smal l linear density at the left lung base. There is no pleural effusion. Bony thorax is intact. IMPRESSION: Subsegmental atelectasis left lower lobe. Normal heart.
[2021-06-02] MEDS ORDERED: BAMLANIVIMAB (EUA) 700 MG, ETESEVIMAB (EUA) 1,400 MG in SODIUM CHLORIDE 0.9% 50 ML IVPB ONE (21:45)
[2021-06-02 23:45] VITALS: TEMP 98.9
== END 2021-06-02 23:46 | disposition home or self-care (01) ==
LOC: EC 14:36
DX: U07.1 COVID-19 (principal)
CPT/HCPCS: 99284; 96372; 71046; J1100; J3490